=== PATIENT | female | born 1995 | race Native Hawaiian/Other Pacific Islander ===

== ENCOUNTER 2016-10-15 12:48 | Emergency (ER) | payer OTHER ==
[2016-10-15] MEDS ORDERED: SODIUM CHLORIDE 0.9% 1,000 ML IV STA (13:45)
[2016-10-15] MEDS ORDERED: ONDANSETRON 4 MG/2 ML VIAL IVP STA (13:45)
[2016-10-15] MEDS ORDERED: FAMOTIDINE 20 MG/2 ML VIAL IV STA (13:45)
--- NOTE | 2016-10-15 13:50 | ED ---
General Adult HPI - General Chief complaint: Nausea/Vomiting/Diarrhea Stated complaint: Vomiting Time Seen by Provider: 10/15/16 13:40 Source: patient, RN notes reviewed Mode of arrival: ambulatory Limitations: no limitations - History of Present Illness Initial comments: 21-year-old female who presents emergency room with multiple complaints. Patient does admit that she's had some cough congestion over the last 5 days. Does admit to positive sputum production it's been yellow and green color. Shows admits that today she began having some abdominal pain in the epigastric and left upper quadrant. She does admit that she's had symptoms of and vomiting. Denies any signs of blood. Denies any other complaints or associated symptoms at this time. Patient denies any recent fever, chills, shortness of breath, chest pain, back pain, numbness or tingling, dysuria or hematuria, constipation or diarrhea, headaches or visual changes, or any other complaints. - Related Data Previous Rx's Medication Instructions Recorded Azithromycin [Zithromax Z-pack] 0 mg PO DIRECTED #6 tab 10/15/16 Ondansetron Odt [Zofran ODT] 4 mg PO Q8HR PRN #20 tab 10/15/16 Allergies Allergy/AdvReac Type Severity Reaction Status Date / Time No Known Allergies Allergy Verified 10/15/16 14:50 Review of Systems ROS Statement: Those systems with pertinent positive or pertinent negative responses have been documented in the HPI. ROS Other: All systems not noted in ROS Statement are negative. Past Medical History Past Medical History: No Reported History History of Any Multi-Drug Resistant Organisms: None Reported Past Surgical History: No Surgical Hx Reported Past Psychological History: No Psychological Hx Reported Smoking Status: Never smoker Past Alcohol Use History: None Reported Past Drug Use History: None Reported General Exam - General Exam Comments Initial Comments: General: The patient is awake and alert, in no distress, and does not appear acutely ill. Eye: Pupils are equal, round and reactive to light, extra-ocular movements are intact. No nystagmus. There is normal conjunctiva bilaterally. No signs of icterus. Ears, nose, mouth and throat: There are moist mucous membranes and no oral lesions. Neck: The neck is supple, there is no tenderness or JVD. Cardiovascular: There is a regular rate and rhythm. No murmur, rub or gallop is appreciated. Respiratory: Lungs are clear to auscultation, respirations are non-labored, breath sounds are equal. No wheezes, stridor, rales, or rhonchi. Gastrointestinal: Normal exam. Normal bowel sounds. Abdomen soft on palpation. Patient does have mild tenderness epigastric and left upper quadrant. No rebound tenderness. No guarding. No CVA tenderness. Musculoskeletal: Normal ROM, no tenderness. Strength 5/5. Sensation intact. Pulses equal bilaterally 2+. Neurological: A&O x 3. CN II-XII intact, There are no obvious motor or sensory deficits. Coordination appears grossly intact. Speech is normal. Skin: Skin is warm and dry and no rashes or lesions are noted. Psychiatric: Cooperative, appropriate mood & affect, normal judgment. Limitations: no limitations Course Vital Signs 10/15/16 10/15/16 10/15/16 12:57 14:28 16:20 Temperature 99.8 F H 101.2 F H 99.3 F Pulse Rate 111 H 73 Respiratory 20 16 Rate Blood Pressure 133/97 130/81 O2 Sat by Pulse 97 96 Oximetry Medical Decision Making - Medical Decision Making Reexamined at this time shows no signs of distress resting comfortably in the stretcher. Does admit that she's feeling better here in the emergency room. Patient soft nontender. Patient's labs been reviewed does show 12,000 white count. Patient did have fever when she presented to the emergency room. Was given Tylenol. Patient feeling better. Patient repeat vitals are stable. Non- tachycardic. Feeling better after liter bolus. Patient's labs all systems reviewed does show some blood she does admit that she's on her menstrual cycle. Patient's chest x-rays negative for any pneumonia. She does have cough congestion over the last 5 days with positive sputum production. Patient will be treated for bronchitis infection. Patient is a advised to follow-up the family doctor over the next 2 days return here to the emergency room symptoms increase or worsen. Patient advised return here to emergency room for any other concerns. - Lab Data Result diagrams: 10/15/16 14:10 10/15/16 14:10 Lab Results 10/15/16 10/15/16 10/15/16 Range/Units 14:10 14:10 14:10 WBC 12.1 H (4.0-11.0) k/uL RBC 4.88 (3.80-5.40) m/uL Hgb 12.2 (11.4-16.0) gm/dL Hct 36.7 (34.0-46.0) % MCV 75.3 L (80.0-100.0) fL MCH 25.1 (25.0-35.0) pg MCHC 33.3 (31.0-37.0) g/dL RDW 15.6 H (11.5-15.5) % Plt Count 417 (150-450) k/uL Neutrophils % 72 % Lymphocytes % 18 % Monocytes % 5 % Eosinophils % 2 % Basophils % 1 % Neutrophils # 8.7 H (1.3-7.7) k/uL Lymphocytes # 2.2 (1.0-4.8) k/uL Monocytes # 0.6 (0-1.0) k/uL Eosinophils # 0.3 (0-0.7) k/uL Basophils # 0.1 (0-0.2) k/uL Microcytosis Slight Sodium 142 (137-145) mmol/L Potassium 3.9 (3.5-5.1) mmol/L Chloride 105 (98-107) mmol/L Carbon Dioxide 22 (22-30) mmol/L Anion Gap 15 mmol/L BUN 5 L (7-17) mg/dL Creatinine 0.71 (0.52-1.04) mg/dL Est GFR (MDRD) Af Amer >60 (>60 ml/min/1.73 sqM) Est GFR (MDRD) Non-Af >60 (>60 ml/min/1.73 sqM) Glucose 96 (74-99) mg/dL Calcium 9.9 (8.4-10.2) mg/dL Total Bilirubin 0.9 (0.2-1.3) mg/dL AST 26 (14-36) U/L ALT 50 (9-52) U/L Alkaline Phosphatase 89 (38-126) U/L Total Protein 8.3 H (6.3-8.2) g/dL Albumin 4.8 (3.5-5.0) g/dL Amylase <30 L (30-110) U/L Lipase 47 (23-300) U/L Urine Color Urine Appearance (Clear) Urine pH (5.0-8.0) Ur Specific [place] (1.001-1.035) Urine Protein (Negative) Urine Glucose (UA) (Negative) Urine Ketones (Negative) Urine Blood (Negative) Urine Nitrite (Negative) Urine Bilirubin (Negative) Urine Urobilinogen (<2.0) mg/dL Ur Leukocyte Esterase (Negative) Urine RBC (0-5) /hpf Urine WBC (0-5) /hpf Ur Squamous Epith Cells (0-4) /hpf Hyaline Casts (0-2) /lpf Urine Mucus (None) /hpf Urine HCG, Qual (Not Detectd) Heterophile Antibody Negative (Negative) Group A Strep Rapid (Negative) 10/15/16 10/15/16 10/15/16 Range/Units 14:54 15:31 15:31 WBC (4.0-11.0) k/uL RBC (3.80-5.40) m/uL Hgb (11.4-16.0) gm/dL Hct (34.0-46.0) % MCV (80.0-100.0) fL MCH (25.0-35.0) pg MCHC (31.0-37.0) g/dL RDW (11.5-15.5) % Plt Count (150-450) k/uL Neutrophils % % Lymphocytes % % Monocytes % % Eosinophils % % Basophils % % Neutrophils # (1.3-7.7) k/uL Lymphocytes # (1.0-4.8) k/uL Monocytes # (0-1.0) k/uL Eosinophils # (0-0.7) k/uL Basophils # (0-0.2) k/uL Microcytosis Sodium (137-145) mmol/L Potassium (3.5-5.1) mmol/L Chloride (98-107) mmol/L Carbon Dioxide (22-30) mmol/L Anion Gap mmol/L BUN (7-17) mg/dL Creatinine (0.52-1.04) mg/dL Est GFR (MDRD) Af Amer (>60 ml/min/1.73 sqM) Est GFR (MDRD) Non-Af (>60 ml/min/1.73 sqM) Glucose (74-99) mg/dL Calcium (8.4-10.2) mg/dL Total Bilirubin (0.2-1.3) mg/dL AST (14-36) U/L ALT (9-52) U/L Alkaline Phosphatase (38-126) U/L Total Protein (6.3-8.2) g/dL Albumin (3.5-5.0) g/dL Amylase (30-110) U/L Lipase (23-300) U/L Urine Color Yellow Urine Appearance Clear (Clear) Urine pH 6.0 (5.0-8.0) Ur Specific [place] 1.016 (1.001-1.035) Urine Protein Trace H (Negative) Urine Glucose (UA) Negative (Negative) Urine Ketones 1+ H (Negative) Urine Blood Moderate H (Negative) Urine Nitrite Negative (Negative) Urine Bilirubin Negative (Negative) Urine Urobilinogen <2.0 (<2.0) mg/dL Ur Leukocyte Esterase Trace H (Negative) Urine RBC 71 H (0-5) /hpf Urine WBC 3 (0-5) /hpf Ur Squamous Epith Cells 1 (0-4) /hpf Hyaline Casts 4 H (0-2) /lpf Urine Mucus Many H (None) /hpf Urine HCG, Qual Not Detected (Not Detectd) Heterophile Antibody (Negative) Group A Strep Rapid Negative (Negative) Disposition Clinical Impression: Bronchitis, acute Disposition: HOME SELF-CARE Condition: Good Instructions: Acute Bronchitis (ED) Additional Instructions: Please use medication as discussed. Please follow-up with family doctor in the next 2 days of symptoms have not improved. Please return to emergency room if the symptoms increase or worsen or for any other concerns. Prescriptions: Azithromycin [Zithromax Z-pack] 0 mg PO DIRECTED #6 tab Ondansetron Odt [Zofran ODT] 4 mg PO Q8HR PRN #20 tab PRN Reason: Nausea Referrals: None,Stated [Primary Care Provider] - 1-2 days Nely Rodriguez MD [STAFF PHYSICIAN] - 1-2 days Time of Disposition: 16:54
[2016-10-15] MEDS ORDERED: ACETAMINOPHEN IV (For NPO) 1,000 MG in SALINE 100 100ML.BAG IVPB STA (14:30)
[2016-10-15 14:47] LABS: Basophils # (A) 0.1 k/uL (0-0.2); Basophils % (A) 1 %; CH 24.6; CHCM 32.8; Eosinophils # (A) 0.3 k/uL (0-0.7); Eosinophils % (A) 2 %; HCT 36.7 % (34.0-46.0); HDW 2.67; HGB 12.2 gm/dL (11.4-16.0); Luc # (Auto) 0.25; Luc % (Auto) 2; Lymphocytes # (A) 2.2 k/uL (1.0-4.8); Lymphocytes % (A) 18 %; MCH 25.1 pg (25.0-35.0); MCHC 33.3 g/dL (31.0-37.0); MCV 75.3 fL (80.0-100.0); Mean Platelet Volume 6.2; Microcytosis Slight; Monocytes # (A) 0.6 k/uL (0-1.0); Monocytes % (A) 5 %; Neutrophils # (A) 8.7 k/uL (1.3-7.7); Neutrophils % (A) 72 %; RBC 4.88 m/uL (3.80-5.40); RDW 15.6 % (11.5-15.5); WBC 12.1 k/uL (4.0-11.0); WBC (Perox) 12.65
[2016-10-15 14:58] LABS: ALT 50 U/L (9-52); AST 26 U/L (14-36); Alkaline Phosphatase 89 U/L (38-126); Amylase <30 U/L (30-110); Anion Gap 15 mmol/L; Blood Urea Nitrogen 5 mg/dL (7-17); Calcium 9.9 mg/dL (8.4-10.2); Carbon Dioxide 22 mmol/L (22-30); Chloride 105 mmol/L (98-107); Glucose 96 mg/dL (74-99); Non-African American GFR(MDRD) >60 (>60 ml/min/1.73 sqM); Potassium 3.9 mmol/L (3.5-5.1); Sodium 142 mmol/L (137-145); Total Bilirubin 0.9 mg/dL (0.2-1.3); Total Protein 8.3 g/dL (6.3-8.2)
[2016-10-15 15:49] LABS: Appearance,Urine Clear (Clear); Bilirubin,Urine Negative (Negative); Glucose,Urine (UA) Negative (Negative); Ketones,Urine 1+ (Negative); Leukocyte Esterase,Urine Trace (Negative); Mucus,Urine Many /hpf; Nitrite,Urine Negative (Negative); Particle Count 7115; Protein,Urine Trace (Negative); RBC,Urine 71 /hpf (0-5); Specific Gravity,Urine 1.016 (1.001-1.035); Squamous Epithelial Cell,Urine 1 /hpf (0-4); UA Billing (MACRO vs. MICRO) MICRO; Urobilinogen,Urine <2.0 mg/dL (<2.0); WBC,Urine 3 /hpf (0-5)
--- NOTE | 2016-10-15 16:04 | XR ---
EXAMINATION TYPE: XR KUB , 2 VIEWS DATE OF EXAM ORDERED: 10/15/2016 HISTORY: abdominal pain. COMPARISON: Previous study dated 05/14/1997. FINDINGS: The abdominal gas pattern is normal. There is no evidence of obstruction or free air. No u nusual calcifications are seen. IMPRESSION: NORMAL ABDOMEN.
--- NOTE | 2016-10-15 16:25 | XR ---
EXAMINATION TYPE: XR chest 2V DATE OF EXAM: 10/15/2016 HISTORY: cough. REFERENCE: Previous study dated 1996.. FINDINGS: The lungs are clear. Pleural spaces are clear. The heart is not enlarged. IMPRESSION: NORMAL CHEST.
[2016-10-15 17:14] VITALS: BP 117/62; PULSE 79; RESP 18; TEMP 98.5
== END 2016-10-15 17:15 | disposition home or self-care (01) ==
LOC: EC 12:48
DX: J20.9 Acute bronchitis, unspecified (principal); R11.2 Nausea with vomiting, unspecified
CPT/HCPCS: 36415; 80053; 82150; 83690; 85025; 86308; 81001; 81025; 87081; 87430; 71020; 74000; 99284; 96374; 96375 ×2; 96361 ×3; J2405; J0131

== ENCOUNTER 2016-12-08 10:02 | Emergency (ER) | payer OTHER ==
[2016-12-08] MEDS ORDERED: SODIUM CHLORIDE 0.9% 1,000 ML IV STA (10:45)
--- NOTE | 2016-12-08 10:51 | ED ---
General Adult HPI - General Chief complaint: Vaginal Bleeding Stated complaint: DIZZINESS, ALTERED, BLOOD LOSS Time Seen by Provider: 12/08/16 10:28 Source: patient, RN notes reviewed Mode of arrival: ambulatory Limitations: no limitations - History of Present Illness Initial comments: 21-year-old female presents to the emergency Department chief complaint of increased vaginal bleeding. Patient has chronically suffer from a regular menstrual cycles. This when going on for about 3 weeks her been very heavy. She states she goes to 2 pads at a time. She states that she has some lightheadedness with this. Patient states that she has had nausea vomiting. He states it just seems either and different than normal and they were concerned. she has never seen anyone regarding her abnormal menstrual cycles. Patient denies any concern for . Patient states she's having whole- body cramping and burning type pain. Patient states that she was concerned due to her discomfort so that she should be evaluated .Patient denies any recent fever, chills, shortness of breath, chest pain, back pain, nausea vomiting, numbness or tingling, dysuria or hematuria, constipation or diarrhea, headaches or visual changes, or any other current symptoms. - Related Data Home Medications Medication Instructions Recorded Confirmed No Known Home Medications [No 12/08/16 12/08/16 Known Home Medications] Allergies Allergy/AdvReac Type Severity Reaction Status Date / Time No Known Allergies Allergy Verified 12/08/16 11:04 Review of Systems ROS Statement: Those systems with pertinent positive or pertinent negative responses have been documented in the HPI. ROS Other: All systems not noted in ROS Statement are negative. Past Medical History Past Medical History: No Reported History History of Any Multi-Drug Resistant Organisms: None Reported Past Surgical History: No Surgical Hx Reported Past Psychological History: No Psychological Hx Reported Smoking Status: Never smoker Past Alcohol Use History: None Reported Past Drug Use History: None Reported General Exam - General Exam Comments Initial Comments: General: The patient is awake and alert, in no distress, and does not appear acutely ill. Eye: Pupils are equal, round and reactive to light, extra-ocular movements are intact; there is normal conjunctiva bilaterally. No signs of icterus. Ears, nose, mouth and throat: There are moist mucous membranes and no oral lesions. Neck: The neck is supple, there is no tenderness. Cardiovascular: There is a regular rate and rhythm. No murmur, rub or gallop is appreciated. Respiratory: Lungs are clear to auscultation, respirations are non-labored, breath sounds are equal. No wheezes, stridor, rales, or rhonchi. Gastrointestinal: Soft, non-distended, non-tender abdomen without masses or organomegaly noted. There is no rebound or guarding present. No CVA tenderness. Bowel sounds are unremarkable. Back: There is no tenderness to palpation in the midline. There is no obvious deformity. No rashes noted. Musculoskeletal: Normal ROM, no tenderness, There is no pedal edema. There is no calf tenderness or swelling. Sensation intact. Pulses equal bilaterally 2+. Neurological: CN II-XII intact, There are no obvious motor or sensory deficits. Coordination appears grossly intact. Speech is normal. Skin: Skin is warm and dry and no rashes or lesions are noted. Psychiatric: Cooperative, appropriate mood & affect, normal judgment. Limitations: no limitations Course Vital Signs 12/08/16 12/08/16 10:08 12:51 Temperature 97.5 F L 97.7 F Pulse Rate 104 H 95 Respiratory 18 16 Rate Blood Pressure 153/95 117/57 O2 Sat by Pulse 100 100 Oximetry Medical Decision Making - Medical Decision Making 21-year-old female presents emergency department with a chief complaint of vaginal bleeding.at this time patient's hemoglobin is stable. At this time ultrasound and CAT scan did not show any acute process. This and we discussed patient was admitted she bleeding since she's had . At this time we did discuss follow-up with the [facility]. We discussed return parameters outpatient family's questions. They stated they understood. All questions have been answered. They'll be discharged. - Lab Data Result diagrams: 12/08/16 11:00 12/08/16 11:00 Lab Results 12/08/16 12/08/16 12/08/16 Range/Units 11:00 11:00 11:00 WBC 10.4 (4.0-11.0) k/uL RBC 4.79 (3.80-5.40) m/uL Hgb 12.5 (11.4-16.0) gm/dL Hct 37.0 (34.0-46.0) % MCV 77.2 L (80.0-100.0) fL MCH 26.0 (25.0-35.0) pg MCHC 33.7 (31.0-37.0) g/dL RDW 15.1 (11.5-15.5) % Plt Count 421 (150-450) k/uL Neutrophils % 67 % Lymphocytes % 26 % Monocytes % 4 % Eosinophils % 2 % Basophils % 0 % Neutrophils # 7.0 (1.3-7.7) k/uL Lymphocytes # 2.7 (1.0-4.8) k/uL Monocytes # 0.4 (0-1.0) k/uL Eosinophils # 0.2 (0-0.7) k/uL Basophils # 0.0 (0-0.2) k/uL Microcytosis Slight Sodium 141 (137-145) mmol/L Potassium 4.0 (3.5-5.1) mmol/L Chloride 107 (98-107) mmol/L Carbon Dioxide 18 L (22-30) mmol/L Anion Gap 16 mmol/L BUN 7 (7-17) mg/dL Creatinine 0.60 (0.52-1.04) mg/dL Est GFR (MDRD) Af Amer >60 (>60 ml/min/1.73 sqM) Est GFR (MDRD) Non-Af >60 (>60 ml/min/1.73 sqM) Glucose 126 H (74-99) mg/dL Calcium 10.4 H (8.4-10.2) mg/dL Total Bilirubin 0.5 (0.2-1.3) mg/dL AST 22 (14-36) U/L ALT 30 (9-52) U/L Alkaline Phosphatase 89 (38-126) U/L Total Protein 7.5 (6.3-8.2) g/dL Albumin 4.4 (3.5-5.0) g/dL Urine Color Urine Appearance (Clear) Urine pH (5.0-8.0) Ur Specific [place] (1.001-1.035) Urine Protein (Negative) Urine Glucose (UA) (Negative) Urine Ketones (Negative) Urine Blood (Negative) Urine Nitrite (Negative) Urine Bilirubin (Negative) Urine Urobilinogen (<2.0) mg/dL Ur Leukocyte Esterase (Negative) Urine RBC (0-5) /hpf Urine WBC (0-5) /hpf Ur Squamous Epith Cells (0-4) /hpf Urine Mucus (None) /hpf Urine HCG, Qual (Not Detectd) Blood Type O Positive Blood Type Recheck No Antibody Screen NEGATIVE Spec Expiration Date 12/11/2016229912/08/16 12/08/16 Range/Units 11:30 11:30 WBC (4.0-11.0) k/uL RBC (3.80-5.40) m/uL Hgb (11.4-16.0) gm/dL Hct (34.0-46.0) % MCV (80.0-100.0) fL MCH (25.0-35.0) pg MCHC (31.0-37.0) g/dL RDW (11.5-15.5) % Plt Count (150-450) k/uL Neutrophils % % Lymphocytes % % Monocytes % % Eosinophils % % Basophils % % Neutrophils # (1.3-7.7) k/uL Lymphocytes # (1.0-4.8) k/uL Monocytes # (0-1.0) k/uL Eosinophils # (0-0.7) k/uL Basophils # (0-0.2) k/uL Microcytosis Sodium (137-145) mmol/L Potassium (3.5-5.1) mmol/L Chloride (98-107) mmol/L Carbon Dioxide (22-30) mmol/L Anion Gap mmol/L BUN (7-17) mg/dL Creatinine (0.52-1.04) mg/dL Est GFR (MDRD) Af Amer (>60 ml/min/1.73 sqM) Est GFR (MDRD) Non-Af (>60 ml/min/1.73 sqM) Glucose (74-99) mg/dL Calcium (8.4-10.2) mg/dL Total Bilirubin (0.2-1.3) mg/dL AST (14-36) U/L ALT (9-52) U/L Alkaline Phosphatase (38-126) U/L Total Protein (6.3-8.2) g/dL Albumin (3.5-5.0) g/dL Urine Color Light Red Urine Appearance Clear (Clear) Urine pH 7.5 (5.0-8.0) Ur Specific [place] 1.011 (1.001-1.035) Urine Protein Trace H (Negative) Urine Glucose (UA) Negative (Negative) Urine Ketones Negative (Negative) Urine Blood Large H (Negative) Urine Nitrite Negative (Negative) Urine Bilirubin Negative (Negative) Urine Urobilinogen <2.0 (<2.0) mg/dL Ur Leukocyte Esterase Trace H (Negative) Urine RBC >182 H (0-5) /hpf Urine WBC 35 H (0-5) /hpf Ur Squamous Epith Cells 1 (0-4) /hpf Urine Mucus Rare H (None) /hpf Urine HCG, Qual Not Detected (Not Detectd) Blood Type Blood Type Recheck Antibody Screen Spec Expiration Date - Radiology Data Radiology results: report reviewed, image reviewed Disposition Clinical Impression: Dysfunctional uterine bleeding Disposition: HOME SELF-CARE Condition: Stable Instructions: Dysfunctional Uterine Bleeding (ED) Additional Instructions: Please use medication as discussed. Please follow up with family doctor if symptoms have not improved over the next two days. Please return to the emergency room if your symptoms increase or worsen or for any other concerns. Referrals: Edward Dial MD [STAFF PHYSICIAN] - 1-2 days Desmond Spencer MD [STAFF PHYSICIAN] - 1-2 days Time of Disposition: 12:59
[2016-12-08 11:19] LABS: Basophils % (A) 0 %; CH 25.4; Eosinophils # (A) 0.2 k/uL (0-0.7); Eosinophils % (A) 2 %; HDW 2.66; HGB 12.5 gm/dL (11.4-16.0); Luc # (Auto) 0.15; Luc % (Auto) 1; Lymphocytes # (A) 2.7 k/uL (1.0-4.8); Lymphocytes % (A) 26 %; MCHC 33.7 g/dL (31.0-37.0); MCV 77.2 fL (80.0-100.0); Mean Platelet Volume 6.6; Microcytosis Slight; Monocytes # (A) 0.4 k/uL (0-1.0); Monocytes % (A) 4 %; Neutrophils % (A) 67 %; RBC 4.79 m/uL (3.80-5.40); RDW 15.1 % (11.5-15.5); WBC 10.4 k/uL (4.0-11.0); WBC (Perox) 10.54
[2016-12-08 11:40] LABS: ALT 30 U/L (9-52); AST 22 U/L (14-36); Alkaline Phosphatase 89 U/L (38-126); Anion Gap 16 mmol/L; Blood Urea Nitrogen 7 mg/dL (7-17); Calcium 10.4 mg/dL (8.4-10.2); Carbon Dioxide 18 mmol/L (22-30); Chloride 107 mmol/L (98-107); Glucose 126 mg/dL (74-99); Non-African American GFR(MDRD) >60 (>60 ml/min/1.73 sqM); Sodium 141 mmol/L (137-145); Total Bilirubin 0.5 mg/dL (0.2-1.3); Total Protein 7.5 g/dL (6.3-8.2)
[2016-12-08 11:54] LABS: Appearance,Urine Clear (Clear); Bilirubin,Urine Negative (Negative); Glucose,Urine (UA) Negative (Negative); Ketones,Urine Negative (Negative); Leukocyte Esterase,Urine Trace (Negative); Mucus,Urine Rare /hpf; Nitrite,Urine Negative (Negative); PH, Urine 7.5 (5.0-8.0); Particle Count 2647; Protein,Urine Trace (Negative); RBC,Urine >182 /hpf (0-5); Specific Gravity,Urine 1.011 (1.001-1.035); Squamous Epithelial Cell,Urine 1 /hpf (0-4); UA Billing (MACRO vs. MICRO) MICRO; Urobilinogen,Urine <2.0 mg/dL (<2.0); WBC,Urine 35 /hpf (0-5)
--- NOTE | 2016-12-08 12:11 | US ---
EXAMINATION TYPE: US pelvic complete DATE OF EXAM: 12/08/2016 COMPARISON: NONE CLINICAL HISTORY: Pain. Bleeding x 3 weeks, irregular cycles, 0 TECHNIQUE: Transabdominal (TA) only: attempted transvaginal exam, patient unable to tolerate. Date of LMP: 3 weeks ago EXAM MEASUREMENTS: Uterus: 6.3 x 4.0 x 4.8 cm Endometrial Stripe: 0.4 cm Right Ovary: not seen Left Ovary: not seen 1. Uterus: anteverted, visualized portions appear wnl 2. Endometrium: visualized portions appear wnl 3. Right Ovary: not seen due to overlying bowel gas 4. Left Ovary: not seen due to overlying bowel gas 5. Bilateral Adnexa: wnl 6. Posterior cul-de-sac: wnl IMPRESSION: Limited exam as only the transabdominal technique was not tolerated by the patient. There fore the ovaries were not visualized. Uterus and endometrial thickness are within normal limits.
--- NOTE | 2016-12-08 12:47 | CT ---
EXAMINATION TYPE: CT abdomen pelvis wo con DATE OF EXAM: 12/08/2016 COMPARISON: Abdomen 10/15/2016 HISTORY: Generalized pain with excess vaginal bleeding per patient CT DLP: 790.6 mGycm Automated exposure control for dose reduction was used. Helical acquisition from the lung bases throu gh the pelvis. TECHNIQUE: Helical acquisition of images from the lung bases through the pelvis. FINDINGS: Lack of intravenous contrast could compromise the exam. LUNG BASES: No significant abnormality is appreciated. AORTA: No significant abnormality is appreciated. LIVER/GB: Liver is borderline enlarged and shows low attenuation suggestive of hepatic steatosis, gal lbladder is normal. PANCREAS: No significant abnormality is seen. SPLEEN: No significant abnormality is seen. ADRENALS: No significant abnormality is seen. KIDNEYS: No significant abnormality is seen. REPRODUCTIVE ORGANS: No significant abnormality is seen. URINARY BLADDER: No significant abnormality is seen. BOWEL: Appendix is normal, no bowel obstruction. FREE AIR: No Free Air is visible. ASCITES: None visible. PELVIC ADENOPATHY: None visualized. RETROPERITONEAL ADENOPATHY: No Retroperitoneal Adenopathy visible. OSSEOUS STRUCTURES: No significant abnormality is seen. IMPRESSION: NONCONTRAST EXAM. HEPATIC STEATOSIS. NO ABNORMALITY EVIDENT TO ACCOUNT FOR PATIENT'S SYMPTOMS.
[2016-12-08 12:53] VITALS: BP 117/57; PULSE 95; RESP 16; TEMP 97.7
== END 2016-12-08 13:10 | disposition home or self-care (01) ==
LOC: EC 10:02
DX: N93.8 Other specified abnormal uterine and vaginal bleeding (principal); R42 Dizziness and giddiness; R11.2 Nausea with vomiting, unspecified; R52 Pain, unspecified
CPT/HCPCS: 36415; 74176; 76856; 80053; 81001; 81025; 85025; 86850; 86900; 86901; 96360; 96361; 99284

== ENCOUNTER 2016-12-18 22:19 | Emergency (ER) | payer OTHER ==
[2016-12-18 22:55] LABS: Glucose,Whole Blood 126 mg/dL (75-99)
[2016-12-18 22:57] VITALS: BP 131/97; PULSE 112; RESP 20; TEMP 97.9
[2016-12-18] MEDS ORDERED: LORazepam 1 MG TAB PO STA (23:27)
--- NOTE | 2016-12-19 00:44 | ED ---
General Adult HPI - General Chief complaint: Weakness Stated complaint: lightheaded/dizzy/facial numbness Time Seen by Provider: 12/18/16 23:20 Source: patient, family, RN notes reviewed Mode of arrival: wheelchair Limitations: no limitations - History of Present Illness Initial comments: Chief complaint history of present illness a 21-year-old female here with a complaint of being short of breath. The patient is hyperventilating has tingling around her lips and mouth. Patient denies any pain - Related Data Home Medications Medication Instructions Recorded Confirmed No Known Home Medications [No 12/08/16 12/18/16 Known Home Medications] Allergies Allergy/AdvReac Type Severity Reaction Status Date / Time No Known Allergies Allergy Verified 12/18/16 23:29 Review of Systems ROS Statement: Those systems with pertinent positive or pertinent negative responses have been documented in the HPI. Review of systems. Patient reports she is short of breath a deep breaths frequently. Patient's had what appears to be a panic attack or anxiety attack. Patient reports that on again off again for several weeks. Cannot think of anything as bothering her. She just recently moved here to the past several months from [place] to live with her father. Denies any difficulties or problems at home. States she feels safe in her environment. Denies any chronic medical problems. No known ALLERGIES. Family history not contributory. Patient denies smoking denies drinking. Denies any injuries. ROS Other: All systems not noted in ROS Statement are negative. Past Medical History Past Medical History: No Reported History History of Any Multi-Drug Resistant Organisms: None Reported Past Surgical History: No Surgical Hx Reported Past Psychological History: No Psychological Hx Reported Smoking Status: Never smoker Past Alcohol Use History: None Reported Past Drug Use History: None Reported General Exam - General Exam Comments Initial Comments: General: The patient is awake and alert, mild hyperventilating. Tingling while lips. Vital signs temperature 97.9 pulse 112 respiratory rate 20 pulse ox on percent room air blood pressure 131/97. Eye: Pupils are equal, round and reactive to light, extra-ocular movements are intact ; there is normal conjunctiva bilaterally. No signs of icterus. Ears, nose, mouth and throat: There are moist mucous membranes and no oral lesions. Neck: The neck is supple, there is no tenderness or JVD. Cardiovascular: There is a regular rate and rhythm. No murmur, rub or gallop is appreciated. Respiratory: Lungs are clear to auscultation, respirations are non-labored, breath sounds are equal. No wheezes, stridor, rales, or rhonchi. Breathing mildly rapidly. Causing sensation of shortness of breath and mild anxiety attack. Gastrointestinal: No nausea no vomiting no diarrhea. Back: There is no tenderness to palpation in the midline. There is no obvious deformity. No rashes noted. Musculoskeletal: Normal ROM, no tenderness, There is no pedal edema. There is no calf tenderness or swelling. Sensation intact. Neurological: No neuro deficits. Skin: Skin is warm and dry and no rashes or lesions are noted. Psychiatric: Patient denies any depression or anxiety filled incidences or problems. Limitations: no limitations Course Vital Signs 12/18/16 22:52 Temperature 97.9 F Pulse Rate 112 H Respiratory 20 Rate Blood Pressure 131/97 O2 Sat by Pulse 100 Oximetry EKG Findings - EKG Comments: EKG Findings:: EKG was done and reviewed at 2309 showing sinus tachycardia rate 110. No acute ST elevation no ectopy. Rate 110 LA interval is 132 QRS 82 QT [address] Dial Medical Decision Making - Medical Decision Making Medical decision making. I advised the patient is to how to breathe slowly so her hyperventilation and symptoms with hyperventilation subsided. His was affective. Patient's blood sugars 123. test negative. Chest x-ray was done and was reported by radiologist to be negative as well. The patient was given medications including Ativan and this seemed to help quite a bit. The patient is no longer hyperventilating she'll be referred to her family physician on her Medicaid card. If she has not have a physician and she should follow-up with Dr. Kramer. - Lab Data Lab Results 12/18/16 12/18/16 Range/Units 22:53 23:49 POC Glucose (mg/dL) 126 H (75-99) mg/dL POC Glu Log Chain Feeder ID Priscila Keene Urine HCG, Qual Not Detected (Not Detectd) Disposition Clinical Impression: Hyperventilation syndrome Disposition: HOME SELF-CARE Condition: Fair Instructions: Hyperventilation (ED) Additional Instructions: Remember how to breathe when you have an anxiety or panic attack. Call follow up with your family physician. Referrals: None,Stated [Primary Care Provider] - 1-2 days Kong Noe MD [REFERRING] - 1-2 days Time of Disposition: 00:52
--- NOTE | 2016-12-19 01:04 | XR ---
EXAM: XR Chest, 2 Views CLINICAL HISTORY: Reason: Pain TECHNIQUE: Frontal and lateral views of the chest. COMPARISON: 10/15/16 FINDINGS: Lungs: Unremarkable. No consolidation. Pleural space: Unremarkable. No pneumothorax. Heart: Unremarkable. No cardiomegaly. Mediastinum: Unremarkable. Bones/joints: Unremarkable. IMPRESSION: No evidence of acute cardiopulmonary disease.
== END 2016-12-19 01:12 | disposition home or self-care (01) ==
LOC: EC 22:19
DX: F45.8 Other somatoform disorders (principal); F41.0 Panic disorder [episodic paroxysmal anxiety]; R06.02 Shortness of breath
CPT/HCPCS: 36415; 71020; 81025; 93005; 99285

== ENCOUNTER 2016-12-21 01:24 | Emergency (ER) | payer OTHER ==
[2016-12-21] MEDS ORDERED: ONDANSETRON ODT 4 MG TAB PO STA (01:40)
[2016-12-21] MEDS ORDERED: LORazepam 2 MG/ML SYRINGE IM STA (01:40)
[2016-12-21] MEDS ORDERED: MAG HYDROX/AL HYDROX/SIMETH 30 ML, HYOSCYAMINE ELIXIR 10 ML, CIMETIDINE HCL 300 MG, LID... PO STA ×4 (01:40)
--- NOTE | 2016-12-21 01:48 | ED ---
General Adult HPI - General Chief complaint: Chest Pain Stated complaint: chest discomfort Time Seen by Provider: 12/21/16 01:33 Source: patient Mode of arrival: ambulatory Limitations: no limitations - History of Present Illness Initial comments: 21-year-old female patient presents to emergency department today with complaints of heartburn. She states that she is having some mid epigastric burning. States that she did have pizza for dinner tonight, and her symptoms started after she ate this. She states that she has nausea with this. States she did vomit one time. She states that she did take some Tums however these did not help. She states that the continued symptoms triggered a panic attack. She states now she feels like she has chest tightness, shortness of breath, and tingling in her hands. She states that these symptoms are consistent with her previous panic attacks. She states that she feels like the panic attack is worsening. Patient denies any recent rash, fever, chills, abdominal pain, diarrhea, constipation, back pain, numbness, tingling, dizziness, weakness, hematuria, dysuria, urinary urgency, urinary frequency, headache, visual changes , or any other complaints. - Related Data Home Medications Medication Instructions Recorded Confirmed No Known Home Medications [No 12/08/16 12/21/16 Known Home Medications] Allergies Allergy/AdvReac Type Severity Reaction Status Date / Time No Known Allergies Allergy Verified 12/18/16 23:29 Review of Systems ROS Statement: Those systems with pertinent positive or pertinent negative responses have been documented in the HPI. ROS Other: All systems not noted in ROS Statement are negative. Past Medical History Past Medical History: No Reported History History of Any Multi-Drug Resistant Organisms: None Reported Past Surgical History: No Surgical Hx Reported Past Psychological History: No Psychological Hx Reported Smoking Status: Never smoker Past Alcohol Use History: None Reported Past Drug Use History: None Reported General Exam Limitations: no limitations General appearance: alert, anxious, other (Well-developed, well-nourished adult female patient who appears to be quite anxious at this time. Patient is hyperventilating. Vital signs upon presentation were temperature 97.8, pulse 91 , respirations 20, blood pressure 138/83, pulse ox 99% on room air.) Eye exam: Present: normal appearance, PERRL, EOMI. Absent: scleral icterus, conjunctival injection, periorbital swelling ENT exam: Present: normal exam, normal oropharynx, mucous membranes moist Respiratory exam: Present: normal lung sounds bilaterally, chest wall tenderness. Absent: respiratory distress, wheezes, rales, rhonchi, stridor Cardiovascular Exam: Present: regular rate, normal rhythm, normal heart sounds. Absent: systolic murmur, diastolic murmur, rubs, gallop, clicks GI/Abdominal exam: Present: soft, normal bowel sounds. Absent: distended, tenderness, guarding, rebound, rigid Neurological exam: Present: alert, oriented X3, CN II-XII intact Psychiatric exam: Present: anxious, other (Hyperventilating) Skin exam: Present: warm, dry, intact, normal color. Absent: rash Course Vital Signs 12/21/16 01:27 Temperature 97.8 F Pulse Rate 91 Respiratory 20 Rate Blood Pressure 138/83 O2 Sat by Pulse 99 Oximetry Medical Decision Making - Medical Decision Making 21-year-old female patient presents to emergency department today for complaints of heartburn that triggered a panic attack. During exam patient was quite anxious and hyperventilating. She was given a GI cocktail as well as IM Ativan here in the department. Upon reevaluation patient is resting comfortably in bed with no complaints. States she is feeling much better. She would like to go home to go to bed. She is instructed to follow-up with the primary care physician for further evaluation of this anxiety. She is instructed to avoid greasy or spicy foods. She is instructed to return here immediately for any new, worsening, or concerning symptoms. Patient verbalizes understanding and agrees with this plan. Disposition Clinical Impression: Anxiety, Acid reflux Disposition: HOME SELF-CARE Condition: Good Instructions: Gastroesophageal Reflux Disease (ED), Anxiety (ED) Additional Instructions: Follow-up with a primary care physician for further evaluation of your anxiety. Avoid spicy or greasy foods. Return here immediately for any new, worsening, or concerning symptoms. Referrals: None,Stated [Primary Care Provider] - 1-2 days Time of Disposition: 03:23
[2016-12-21 03:33] VITALS: BP 128/84; PULSE 62; RESP 16; TEMP 97.7
== END 2016-12-21 03:31 | disposition home or self-care (01) ==
LOC: EC 01:24
DX: K21.9 Gastro-esophageal reflux disease without esophagitis (principal); F41.9 Anxiety disorder, unspecified
CPT/HCPCS: 99284; 96372; J2060

== ENCOUNTER 2017-02-16 13:09 | Emergency (ER) | payer OTHER ==
[2017-02-16] MEDS ORDERED: SODIUM CHLORIDE 0.9% 1,000 ML IV ONE (14:04)
[2017-02-16] MEDS ORDERED: KETOROLAC 30 MG/ML 1 ML VIAL IVP STA (14:04)
[2017-02-16] MEDS ORDERED: ALPRAZolam 0.5 MG TAB PO STA (14:04)
--- NOTE | 2017-02-16 14:14 | ED ---
General Adult HPI - General Chief complaint: Allergic Reaction Stated complaint: chest pain Time Seen by Provider: 02/16/17 13:51 Source: patient Mode of arrival: ambulatory Limitations: no limitations - History of Present Illness Initial comments: patient is a 22-year-old female with a history of anxiety and depression who presents with a chief complaint of left-sided and sternal chest pain. The patient states this started yesterday. She states that she recently started taking Zoloft, and buspirone as she is trying to stop taking Xanax for anxiety. The patient cannot identify any inciting incidences that may have caused her chest pain. She denies any trauma, heavy lifting, bending, or twisting. Patient states that she does not identify any aggravating or alleviating factors. Timing for her has been constant. The patient states that she is somewhat short of breath. On initial evaluation, the patient appears anxious and uncomfortable. - Related Data Home Medications Medication Instructions Recorded Confirmed Omeprazole 40 mg PO DAILY 02/16/17 02/16/17 Sertraline [Zoloft] 50 mg PO HS 02/16/17 02/16/17 busPIRone HCL [busPIRone HCL] 5 mg PO BID 02/16/17 02/16/17 Previous Rx's Medication Instructions Recorded Ibuprofen [Motrin] 800 mg PO Q8H #20 tab 02/16/17 Allergies Allergy/AdvReac Type Severity Reaction Status Date / Time No Known Allergies Allergy Verified 02/16/17 14:07 Review of Systems ROS Statement: Those systems with pertinent positive or pertinent negative responses have been documented in the HPI. ROS Other: All systems not noted in ROS Statement are negative. Constitutional: Denies: fever Eyes: Denies: vision change ENT: Denies: ear pain, throat pain Respiratory: Denies: dyspnea Cardiovascular: Reports: chest pain Endocrine: Denies: fatigue Gastrointestinal: Denies: abdominal pain, nausea, vomiting Genitourinary: Denies: dysuria Musculoskeletal: Denies: back pain Skin: Denies: rash, lesions Neurological: Denies: headache Psychiatric: Reports: anxiety, depression Past Medical History Past Medical History: No Reported History History of Any Multi-Drug Resistant Organisms: None Reported Past Surgical History: No Surgical Hx Reported Past Psychological History: Anxiety, Depression Smoking Status: Never smoker Past Alcohol Use History: None Reported Past Drug Use History: None Reported General Exam Limitations: no limitations General appearance: alert, in no apparent distress Head exam: Present: atraumatic, normocephalic Eye exam: Present: PERRL ENT exam: Present: mucous membranes moist Respiratory exam: Present: normal lung sounds bilaterally, chest wall tenderness (patient has tenderness to palpation along the left costosternal border and laterally on her left chest wall. Evaluation of the skin does not show any bruising, erythema, or other lesions.) Cardiovascular Exam: Present: regular rate, normal rhythm GI/Abdominal exam: Present: soft. Absent: distended, tenderness Rectal exam: Present: deferred Extremities exam: Present: normal inspection Back exam: Present: normal inspection Neurological exam: Present: alert, oriented X3, CN II-XII intact Psychiatric exam: Present: anxious, flat affect Skin exam: Present: warm, dry, intact Course Vital Signs 02/16/17 02/16/17 13:14 16:02 Temperature 98.1 F Pulse Rate 94 68 Respiratory 20 16 Rate Blood Pressure 128/88 122/77 O2 Sat by Pulse 100 100 Oximetry Medical Decision Making - Medical Decision Making patient is a 22-year-old female presents with a chief complaint of left-sided chest pain, onset yesterday. Patient describes a sharp type pain, worse with palpation. They'll have an EKG performed, one set of cardiac enzymes. Patient is perk negative and therefore making PE very unlikely diagnosis. Patient will be given 1 L of IV fluids, Toradol for pain, and Xanax for anxiety. 4 PM Lab evaluation this patient is unremarkable. HCG is negative, urinalysis shows a contaminated sample, given that the patient is not symptomatic she will not be treated for urinary tract infection at this time. On reexamination, patient states that her chest pain has improved. At this time there is no likelihood of life-threatening etiologies. Patient was instructed to follow up with primary care or return to the emergency department if her symptoms worsen or change in anyway. She'll be prescribed Motrin for pain control. - Lab Data Result diagrams: 02/16/17 14:54 02/16/17 14:54 Lab Results 02/16/17 02/16/17 02/16/17 Range/Units 14:54 14:54 14:54 WBC 10.5 (3.8-10.6) k/uL RBC 4.57 (3.80-5.40) m/uL Hgb 11.1 L (11.4-16.0) gm/dL Hct 35.1 (34.0-46.0) % MCV 76.8 L (80.0-100.0) fL MCH 24.4 L (25.0-35.0) pg MCHC 31.7 (31.0-37.0) g/dL RDW 16.0 H (11.5-15.5) % Plt Count 416 (150-450) k/uL Neutrophils % 74 % Lymphocytes % 20 % Monocytes % 4 % Eosinophils % 1 % Basophils % 1 % Neutrophils # 7.8 H (1.3-7.7) k/uL Lymphocytes # 2.1 (1.0-4.8) k/uL Monocytes # 0.4 (0-1.0) k/uL Eosinophils # 0.1 (0-0.7) k/uL Basophils # 0.1 (0-0.2) k/uL Anisocytosis Slight Microcytosis Slight Sodium 140 (137-145) mmol/L Potassium 3.9 (3.5-5.1) mmol/L Chloride 107 (98-107) mmol/L Carbon Dioxide 17 L (22-30) mmol/L Anion Gap 16 mmol/L BUN 8 (7-17) mg/dL Creatinine 0.70 (0.52-1.04) mg/dL Est GFR (MDRD) Af Amer >60 (>60 ml/min/1.73 sqM) Est GFR (MDRD) Non-Af >60 (>60 ml/min/1.73 sqM) Glucose 92 (74-99) mg/dL Calcium 10.3 H (8.4-10.2) mg/dL Troponin I <0.012 (0.000-0.034) ng/mL HCG, Qual Not Detected Urine Color Urine Appearance (Clear) Urine pH (5.0-8.0) Ur Specific [place] (1.001-1.035) Urine Protein (Negative) Urine Glucose (UA) (Negative) Urine Ketones (Negative) Urine Blood (Negative) Urine Nitrite (Negative) Urine Bilirubin (Negative) Urine Urobilinogen (<2.0) mg/dL Ur Leukocyte Esterase (Negative) Urine RBC (0-5) /hpf Urine WBC (0-5) /hpf Ur Squamous Epith Cells (0-4) /hpf Amorphous Sediment (None) /hpf Urine Mucus (None) /hpf 02/16/17 Range/Units 14:54 WBC (3.8-10.6) k/uL RBC (3.80-5.40) m/uL Hgb (11.4-16.0) gm/dL Hct (34.0-46.0) % MCV (80.0-100.0) fL MCH (25.0-35.0) pg MCHC (31.0-37.0) g/dL RDW (11.5-15.5) % Plt Count (150-450) k/uL Neutrophils % % Lymphocytes % % Monocytes % % Eosinophils % % Basophils % % Neutrophils # (1.3-7.7) k/uL Lymphocytes # (1.0-4.8) k/uL Monocytes # (0-1.0) k/uL Eosinophils # (0-0.7) k/uL Basophils # (0-0.2) k/uL Anisocytosis Microcytosis Sodium (137-145) mmol/L Potassium (3.5-5.1) mmol/L Chloride (98-107) mmol/L Carbon Dioxide (22-30) mmol/L Anion Gap mmol/L BUN (7-17) mg/dL Creatinine (0.52-1.04) mg/dL Est GFR (MDRD) Af Amer (>60 ml/min/1.73 sqM) Est GFR (MDRD) Non-Af (>60 ml/min/1.73 sqM) Glucose (74-99) mg/dL Calcium (8.4-10.2) mg/dL Troponin I (0.000-0.034) ng/mL HCG, Qual Urine Color Yellow Urine Appearance Cloudy H (Clear) Urine pH 8.0 (5.0-8.0) Ur Specific [place] 1.009 (1.001-1.035) Urine Protein Negative (Negative) Urine Glucose (UA) Negative (Negative) Urine Ketones 1+ H (Negative) Urine Blood Negative (Negative) Urine Nitrite Negative (Negative) Urine Bilirubin Negative (Negative) Urine Urobilinogen <2.0 (<2.0) mg/dL Ur Leukocyte Esterase Large H (Negative) Urine RBC <1 (0-5) /hpf Urine WBC 19 H (0-5) /hpf Ur Squamous Epith Cells 22 H (0-4) /hpf Amorphous Sediment Rare H (None) /hpf Urine Mucus Rare H (None) /hpf Disposition Clinical Impression: Chest pain, Anxiety Disposition: HOME SELF-CARE Condition: Good Instructions: Chest Pain (ED) Prescriptions: Ibuprofen [Motrin] 800 mg PO Q8H #20 tab Referrals: Nely Rodriguez MD [Primary Care Provider] - 1-2 days
[2017-02-16 15:10] LABS: Anisocytosis Slight; Basophils # (A) 0.1 k/uL (0-0.2); Basophils % (A) 1 %; CH 24.7; CHCM 32.3; Eosinophils # (A) 0.1 k/uL (0-0.7); Eosinophils % (A) 1 %; HCT 35.1 % (34.0-46.0); HGB 11.1 gm/dL (11.4-16.0); Luc # (Auto) 0.11; Luc % (Auto) 1; Lymphocytes # (A) 2.1 k/uL (1.0-4.8); Lymphocytes % (A) 20 %; MCH 24.4 pg (25.0-35.0); MCHC 31.7 g/dL (31.0-37.0); MCV 76.8 fL (80.0-100.0); Mean Platelet Volume 7.3; Microcytosis Slight; Monocytes # (A) 0.4 k/uL (0-1.0); Monocytes % (A) 4 %; Neutrophils # (A) 7.8 k/uL (1.3-7.7); Neutrophils % (A) 74 %; RBC 4.57 m/uL (3.80-5.40); WBC 10.5 k/uL (3.8-10.6); WBC (Perox) 11.17
[2017-02-16 15:13] LABS: Amorphous Sediment,Urine Rare /hpf; Appearance,Urine Cloudy (Clear); Bilirubin,Urine Negative (Negative); Glucose,Urine (UA) Negative (Negative); Ketones,Urine 1+ (Negative); Leukocyte Esterase,Urine Large (Negative); Mucus,Urine Rare /hpf; Nitrite,Urine Negative (Negative); Particle Count 9979; Protein,Urine Negative (Negative); RBC,Urine <1 /hpf (0-5); Specific Gravity,Urine 1.009 (1.001-1.035); Squamous Epithelial Cell,Urine 22 /hpf (0-4); UA Billing (MACRO vs. MICRO) MICRO; Urobilinogen,Urine <2.0 mg/dL (<2.0); WBC,Urine 19 /hpf (0-5)
[2017-02-16 15:14] LABS: HCG,Qualitative Serum Not Detected
[2017-02-16 15:16] LABS: Anion Gap 16 mmol/L; Blood Urea Nitrogen 8 mg/dL (7-17); Calcium 10.3 mg/dL (8.4-10.2); Carbon Dioxide 17 mmol/L (22-30); Chloride 107 mmol/L (98-107); Glucose 92 mg/dL (74-99); Non-African American GFR(MDRD) >60 (>60 ml/min/1.73 sqM); Potassium 3.9 mmol/L (3.5-5.1); Sodium 140 mmol/L (137-145)
--- NOTE | 2017-02-16 15:53 | XR ---
EXAMINATION TYPE: XR chest 2V DATE OF EXAM: 02/16/2017 COMPARISON: 12/22/16 HISTORY: Chest pain TECHNIQUE: Frontal and lateral views of the chest are obtained. FINDINGS: There is no focal air space opacity. No evidence for pneumothorax. No pleural effusion. The cardiac silhouette size is within normal limits. The osseous structures are grossly intact. IMPRESSION: 1. No acute cardiopulmonary process.
[2017-02-16 16:03] VITALS: BP 122/77; PULSE 68; RESP 16
[2017-02-16 16:23] VITALS: TEMP 98.3
== END 2017-02-16 16:23 | disposition home or self-care (01) ==
LOC: EC 13:09
DX: R07.2 Precordial pain (principal); F41.9 Anxiety disorder, unspecified; R06.02 Shortness of breath; F32.9 Major depressive disorder, single episode, unspecified; Z79.899 Other long term (current) drug therapy
CPT/HCPCS: 36415; 93005; 80048; 84484; 85025; 81001; 84703; 71020; 99284; 96374; 96361; J1885

== ENCOUNTER 2017-04-18 10:55 | Emergency (ER) | payer OTHER ==
--- NOTE | 2017-04-18 12:54 | ED ---
Head Injury HPI - General Chief complaint: Head Injury Stated complaint: HEAD INJURY Time Seen by Provider: 04/18/17 12:07 Source: patient, RN notes reviewed Mode of arrival: wheelchair Limitations: no limitations - History of Present Illness Initial comments: This is a 22-year-old female presents emergency Department chief complaint of head injury. Patient states that she was putting some laundry in the washer states that she ended up hitting her head on metal plate. She states that she was consciousness that she has headache and abrasion noted to her scalp. She is up-to-date on her tetanus. She denies any dizziness, neck pain, confusion. She just states that she just feels like there is pressure in her head. Patient denies any extremity weakness denies any nausea vomiting. Denies any chance . - Related Data Home Medications Medication Instructions Recorded Confirmed Omeprazole 40 mg PO DAILY 02/16/17 04/18/17 Sertraline [Zoloft] 50 mg PO HS 02/16/17 04/18/17 ALPRAZolam [Xanax] 0.5 mg PO BID PRN 04/18/17 04/18/17 busPIRone HCL 15 mg PO BID 04/18/17 04/18/17 Allergies/Adverse reactions: Allergies Allergy/AdvReac Type Severity Reaction Status Date / Time No Known Allergies Allergy Verified 04/18/17 12:48 Review of Systems ROS Statement: Those systems with pertinent positive or pertinent negative responses have been documented in the HPI. ROS Other: All systems not noted in ROS Statement are negative. Past Medical History Past Medical History: No Reported History History of Any Multi-Drug Resistant Organisms: None Reported Past Surgical History: No Surgical Hx Reported Past Psychological History: Anxiety, Depression Smoking Status: Never smoker Past Alcohol Use History: None Reported Past Drug Use History: None Reported General Exam Limitations: no limitations General appearance: alert, in no apparent distress Head exam: Present: atraumatic, normocephalic. Absent: normal inspection ( Small abrasion hematoma noted in the frontal aspect) Eye exam: Present: normal appearance, PERRL, EOMI. Absent: scleral icterus, conjunctival injection, periorbital swelling ENT exam: Present: normal exam, normal oropharynx, mucous membranes moist, TM's normal bilaterally, normal external ear exam Neck exam: Present: normal inspection, full ROM. Absent: tenderness, meningismus, lymphadenopathy Respiratory exam: Present: normal lung sounds bilaterally. Absent: respiratory distress, wheezes, rales, rhonchi, stridor Cardiovascular Exam: Present: regular rate, normal rhythm, normal heart sounds. Absent: systolic murmur, diastolic murmur, rubs, gallop, clicks Neurological exam: Present: alert, oriented X3, CN II-XII intact, reflexes normal, other (Finger to nose intact bilaterally without overshooting). Absent : motor sensory deficit Skin exam: Present: warm, dry, intact, normal color. Absent: rash Course Vital Signs 04/18/17 11:33 Temperature 98.4 F Pulse Rate 83 Respiratory 15 Rate Blood Pressure 113/69 O2 Sat by Pulse 100 Oximetry Medical Decision Making - Medical Decision Making 22-year-old female presented for MRSA from for head injury. Patient CT is unremarkable. Patient has small abrasion also. She is up-to-date on her tetanus. Patient we discharged return parameters were discussed. Patient has normal neuro exam. Disposition Clinical Impression: Head injury, Scalp abrasion Disposition: HOME SELF-CARE Condition: Stable Instructions: Concussion (ED) Additional Instructions: Please return to the Emergency Department if symptoms worsen or any other concerns. Referrals: Nely Rodriguez MD [Primary Care Provider] - 1-2 days Time of Disposition: 13:02
--- NOTE | 2017-04-18 12:59 | CT ---
EXAMINATION TYPE: CT brain wo con DATE OF EXAM: 04/18/2017 COMPARISON: Previous study dated 1996. HISTORY: Head Injury CT DLP: 1090.4 mGycm Automated exposure control for dose reduction was used. FINDINGS: Central structures are midline. There is no evidence of hydrocephalus. No acute focal lesion, mass ef fect or midline shift is seen. I do not see evidence of intracranial blood. Visualized portions of the paranasal sinuses and mastoids are clear. No depressed skull fracture is s een. IMPRESSION: NO ACUTE INTRACRANIAL ABNORMALITY.
[2017-04-18 13:13] VITALS: BP 112/65; PULSE 85; RESP 18; TEMP 97.6
== END 2017-04-18 13:13 | disposition home or self-care (01) ==
LOC: EC 10:55
DX: S00.01XA Abrasion of scalp, initial encounter (principal); F32.9 Major depressive disorder, single episode, unspecified; F41.9 Anxiety disorder, unspecified; Z79.899 Other long term (current) drug therapy; W22.8XXA Striking against or struck by other objects, initial encounter; Y93.01 Activity, walking, marching and hiking; Y92.89 Other specified places as the place of occurrence of the external cause
CPT/HCPCS: 70450; 99283

== ENCOUNTER 2024-09-03 06:42 | Inpatient (IN) | payer BC ==
--- NOTE | 2024-09-03 06:58 | ED ---
Abdominal Pain HPI - General Chief Complaint: Abdominal Pain Stated Complaint: abd pain Time Seen by Provider: 09/03/24 06:48 Source: patient, RN notes reviewed Mode of arrival: ambulatory Limitations: no limitations - History of Present Illness Initial Comments: This is a 29-year-old female who presents to the emergency department for abdominal pain. Patient reports right upper quadrant abdominal pain starting about 3 hours ago. She has nausea but no vomiting. States that she had cake last night. The last time she had pain this bad was when she needed her appendix out 2 years ago. Denies any history of problems with her gallbladder. Denies any diarrhea or constipation. MD Complaint: abdominal pain - Related Data Home Medications Medication Instructions Recorded Confirmed No Known Home Medications 09/03/24 09/03/24 Allergies Allergy/AdvReac Type Severity Reaction Status Date / Time No Known Allergies Allergy Verified 09/03/24 09:14 Review of Systems ROS Statement: Those systems with pertinent positive or pertinent negative responses have been documented in the HPI. ROS Other: All systems not noted in ROS Statement are negative. Past Medical History Past Medical History: No Reported History History of Any Multi-Drug Resistant Organisms: None Reported Past Surgical History: No Surgical Hx Reported Past Psychological History: Anxiety, Depression Smoking Status: Never smoker Past Alcohol Use History: None Reported Past Drug Use History: None Reported General Exam Limitations: no limitations General appearance: alert, in no apparent distress Head exam: Present: atraumatic, normocephalic, normal inspection Respiratory exam: Present: normal lung sounds bilaterally. Absent: respiratory distress, wheezes, rales, rhonchi, stridor Cardiovascular Exam: Present: regular rate, normal rhythm GI/Abdominal exam: Present: soft, tenderness (RUQ). Absent: distended Neurological exam: Present: alert, oriented X3, CN II-XII intact Psychiatric exam: Present: normal affect, normal mood Skin exam: Present: warm, dry, intact, normal color. Absent: rash Course Vital Signs 09/03/24 09/03/24 06:42 08:13 Temperature 98.9 F Pulse Rate 102 H 70 Respiratory 20 16 Rate Blood Pressure 152/107 122/88 O2 Sat by Pulse 96 97 Oximetry Medical Decision Making - Medical Decision Making This is a 29-year-old female who presents to the emergency department for abdominal pain. Was pt. sent in by a medical professional or institution? @ -No Did you speak to anyone other than the patient for history? @ -No Did you review nursing and triage notes? @ -Yes, and I agree, it is accurate with regards to the patient's symptoms. Were old charts reviewed? @ -No Differential Diagnosis? @ -Differential Abdominal Pain Women: Appendicitis, Cholecystitis, diverticulosis, ischemic bowel, pancreatitis, hepatitis, UTI, gastroenteritis, AAA, incarcerated hernia, bowel obstruction, constipation, inflammatory bowel, hepatitis, peptic ulcer disease, splenic infarction, perforated viscus, vulvitis, ovarian torsion, PID, kidney stone, placenta abruption, this is not meant to be an all-inclusive list EKG interpreted by me (3pts min.)? @ -Not obtained X-rays interpreted by me (1pt min.)? @ -Not obtained CT interpreted by me (1pt min.)? @ -Not obtained U/S interpreted by me (1pt. min.)? @ -Gallbladder ultrasound obtained. My interpretation identifies cholelithiasis. What testing was considered but not performed? (CT, X-rays, U/S, labs)? Why? @ -None What meds were considered but not given? Why? @ -None Did you discuss the management of the patient with other professionals? @ -Yes, Dr. Yadav, general surgery, who is agreeable to admission here given the normal LFTs and CBD. Dr. Velazco accepts the patient for admission to medicine. Did you reconcile home meds? @ -No Was smoking cessation discussed for >3mins.? @ -No Was critical care preformed (if so, how long)? @ -No Were there social determinants of health that impacted care today? How? (Homelessness, low income, unemployed, alcoholism, drug addiction, transport ation, low edu. Level, literacy, decrease access to med. care, [facility], rehab)? @ -No Was there de-escalation of care discussed even if they declined? (Discuss DNR or withdrawal of care, Hospice)? @ -No What co-morbidities impacted this encounter? (DM, HTN, Smoking, COPD, CAD, Cancer, CVA, Hep., AIDS, mental health diagnosis, sleep apnea, morbid obesity)? @ -None Was patient admitted / discharged? @ -Admitted. Lab work demonstrates mild leukocytosis with a white blood cell count of 11.89 and an elevated lipase of 1954. Amylase elevated at 163. Liver enzymes are within normal limits. Gallbladder ultrasound obtained revealing cholelithiasis without signs of acute cholecystitis. CBD is within normal limi ts. Pancreatitis is likely secondary to gallstones. Patient denies any alcohol use. There is no sign of biliary obstruction. Case discussed with general surgery, who is agreeable to admission at our facility given that LFTs and CBD are within normal limits. Patient admitted to medicine for gallstone pancreatitis with consult placed to general surgery. Patient kept NPO. Maintenance fluids initiated. Case discussed with ED attending, Dr. Blackman. Undiagnosed new problem with uncertain prognosis? @ -None Drug Therapy requiring intensive monitoring for toxicity (Heparin, Nitro, Insulin, Cardizem)? @ -None Were any procedures done? @ -None Diagnosis/symptom? @ -Gallstone pancreatitis Acute, or Chronic, or Acute on Chronic? @ -Acute Uncomplicated (without systemic symptoms) or Complicated (systemic symptoms)? @ -Complicated Side effects of treatment? @ -None Exacerbation, Progression, or Severe Exacerbation] @ -Not applicable Poses a threat to life or bodily function? @ -Yes, can lead to life-threatening infection - Lab Data Result diagrams: 09/03/24 07:01 09/03/24 07:01 Lab Results 09/03/24 09/03/24 09/03/24 Range/Units 07:01 07:01 07:01 WBC 11.89 H (4.50-10.00) 10*3/uL RBC 4.68 (4.10-5.20) 10*6/uL Hgb 11.7 L (12.0-15.0) g/dL Hct 36.3 L (37.2-46.3) % MCV 77.6 L (80.0-97.0) fL MCH 25.0 L (27.0-32.0) pg MCHC 32.2 (32.0-37.0) g/dL Plt Count 379 (140-440) 10*3/uL MPV 9.3 L (9.5-12.2) fL Immature Gran % (Auto) 0.3 % Neutrophils % 62.8 % Lymphocytes % 29.9 % Monocytes % 5.6 % Eosinophils % 1.0 % Basophils % 0.4 % Immature Gran # 0.03 (0.00-0.04) 10*3/uL Neutrophils # 7.48 (1.80-7.70) 10*3/uL Lymphocytes # 3.55 (0.90-5.00) 10*3/uL Monocytes # 0.66 (0.20-1.00) 10*3/uL Eosinophils # 0.12 (0.04-0.35) 10*3/uL Basophils # 0.05 (0.00-0.10) 10*3/uL Sodium 139 (137-145) mmol/L Potassium 4.1 (3.5-5.1) mmol/L Chloride 105 (98-107) mmol/L Carbon Dioxide 23 (22-30) mmol/L Anion Gap 11 mmol/L BUN 12 (7-17) mg/dL Creatinine 0.66 (0.52-1.04) mg/dL Est GFR (CKD-EPI)AfAm >90 (>60 ml/min/1.73 sqM) Est GFR (CKD-EPI)NonAf >90 (>60 ml/min/1.73 sqM) Glucose 102 H (74-99) mg/dL Plasma Lactic Acid [place] 0.7 (0.7-2.0) mmol/L Calcium 9.6 (8.4-10.2) mg/dL Total Bilirubin 0.5 (0.2-1.3) mg/dL AST 24 (14-36) U/L ALT 19 (4-34) U/L Alkaline Phosphatase 90 (38-126) U/L Total Protein 7.6 (6.3-8.2) g/dL Albumin 4.6 (3.5-5.0) g/dL Amylase (30-110) U/L Lipase 1954 H (23-300) U/L HCG, Qual Not Detected Urine Color Urine Appearance (Clear) Urine pH (5.0-8.0) Ur Specific [place] (1.001-1.035) Urine Protein (Negative) Urine Glucose (UA) (Negative) Urine Ketones (Negative) Urine Blood (Negative) Urine Nitrite (Negative) Urine Bilirubin (Negative) Urine Urobilinogen (<2.0) mg/dL Ur Leukocyte Esterase (Negative) Urine RBC (0-5) /hpf Urine WBC (0-5) /hpf Ur Squamous Epith Cells (0-4) /hpf Urine Mucus (None) /hpf 06/07/25 06/07/25 Range/Units 07:01 07:49 WBC (4.50-10.00) 10*3/uL RBC (4.10-5.20) 10*6/uL Hgb (12.0-15.0) g/dL Hct (37.2-46.3) % MCV (80.0-97.0) fL MCH (27.0-32.0) pg MCHC (32.0-37.0) g/dL Plt Count (140-440) 10*3/uL MPV (9.5-12.2) fL Immature Gran % (Auto) % Neutrophils % % Lymphocytes % % Monocytes % % Eosinophils % % Basophils % % Immature Gran # (0.00-0.04) 10*3/uL Neutrophils # (1.80-7.70) 10*3/uL Lymphocytes # (0.90-5.00) 10*3/uL Monocytes # (0.20-1.00) 10*3/uL Eosinophils # (0.04-0.35) 10*3/uL Basophils # (0.00-0.10) 10*3/uL Sodium (137-145) mmol/L Potassium (3.5-5.1) mmol/L Chloride (98-107) mmol/L Carbon Dioxide (22-30) mmol/L Anion Gap mmol/L BUN (7-17) mg/dL Creatinine (0.52-1.04) mg/dL Est GFR (CKD-EPI)AfAm (>60 ml/min/1.73 sqM) Est GFR (CKD-EPI)NonAf (>60 ml/min/1.73 sqM) Glucose (74-99) mg/dL Plasma Lactic Acid [place] (0.7-2.0) mmol/L Calcium (8.4-10.2) mg/dL Total Bilirubin (0.2-1.3) mg/dL AST (14-36) U/L ALT (4-34) U/L Alkaline Phosphatase (38-126) U/L Total Protein (6.3-8.2) g/dL Albumin (3.5-5.0) g/dL Amylase 163 H (30-110) U/L Lipase (23-300) U/L HCG, Qual Urine Color Colorless Urine Appearance Clear (Clear) Urine pH 6.5 (5.0-8.0) Ur Specific [place] 1.018 (1.001-1.035) Urine Protein Negative (Negative) Urine Glucose (UA) Negative (Negative) Urine Ketones Negative (Negative) Urine Blood Moderate H (Negative) Urine Nitrite Negative (Negative) Urine Bilirubin Negative (Negative) Urine Urobilinogen <2.0 (<2.0) mg/dL Ur Leukocyte Esterase Negative (Negative) Urine RBC 16 H (0-5) /hpf Urine WBC 1 (0-5) /hpf Ur Squamous Epith Cells 3 (0-4) /hpf Urine Mucus Rare H (None) /hpf - Radiology Data Radiology results: report reviewed, image reviewed Disposition Clinical Impression: Gallstone pancreatitis Disposition: ADMITTED IP TO THIS HOSP
[2024-09-03] MEDS: MORPHINE SULFATE 4 MG/ML SYRINGE IVP STA (07:05)
[2024-09-03] MEDS: ONDANSETRON 4 MG/2 ML VIAL IVP STA (07:07)
[2024-09-03] MEDS: KETOROLAC 15 MG/ML 1 ML VIAL IVP STA (07:08)
[2024-09-03] MEDS: SODIUM CHLORIDE 0.9% 1,000 ML IV ONE (07:09)
[2024-09-03 07:18] LABS: Basophils # (A) 0.05 10*3/uL (0.00-0.10); Basophils % (A) 0.4 %; Eosinophils # (A) 0.12 10*3/uL (0.04-0.35); HCT 36.3 % (37.2-46.3); HGB 11.7 g/dL (12.0-15.0); Lymphocytes # (A) 3.55 10*3/uL (0.90-5.00); Lymphocytes % (A) 29.9 %; MCHC 32.2 g/dL (32.0-37.0); MCV 77.6 fL (80.0-97.0); Mean Platelet Volume 9.3 fL (9.5-12.2); Monocytes # (A) 0.66 10*3/uL (0.20-1.00); Monocytes % (A) 5.6 %; Neutrophils # (A) 7.48 10*3/uL (1.80-7.70); Neutrophils % (A) 62.8 %; Platelet Count 379 10*3/uL (140-440); RBC 4.68 10*6/uL (4.10-5.20); WBC 11.89 10*3/uL (4.50-10.00)
[2024-09-03 07:25] LABS: HCG,Qualitative Serum Not Detected
[2024-09-03 07:43] LABS: ALT 19 U/L (4-34); AST 24 U/L (14-36); African American GFR (CKD) >90 (>60 ml/min/1.73 sqM); Albumin 4.6 g/dL (3.5-5.0); Alkaline Phosphatase 90 U/L (38-126); Anion Gap 11 mmol/L; Blood Urea Nitrogen 12 mg/dL (7-17); Calcium 9.6 mg/dL (8.4-10.2); Carbon Dioxide 23 mmol/L (22-30); Chloride 105 mmol/L (98-107); Glucose 102 mg/dL (74-99); Non-African American GFR(CKD) >90 (>60 ml/min/1.73 sqM); Potassium 4.1 mmol/L (3.5-5.1); Sodium 139 mmol/L (137-145); Total Bilirubin 0.5 mg/dL (0.2-1.3); Total Protein 7.6 g/dL (6.3-8.2)
[2024-09-03 07:51] LABS: Lipase 1954 U/L (23-300)
[2024-09-03 08:07] LABS: Appearance,Urine Clear (Clear); Bilirubin,Urine Negative (Negative); Blood,Urine Moderate (Negative); Color,Urine Colorless; Glucose,Urine (UA) Negative (Negative); Ketones,Urine Negative (Negative); Leukocyte Esterase,Urine Negative (Negative); Mucus,Urine Rare /hpf; Nitrite,Urine Negative (Negative); PH, Urine 6.5 (5.0-8.0); Protein,Urine Negative (Negative); RBC,Urine 16 /hpf (0-5); Specific Gravity,Urine 1.018 (1.001-1.035); Squamous Epithelial Cell,Urine 3 /hpf (0-4); Urobilinogen,Urine <2.0 mg/dL (<2.0); WBC,Urine 1 /hpf (0-5)
--- NOTE | 2024-09-03 08:17 | US ---
EXAMINATION TYPE: US gallbladder DATE OF EXAM: 09/03/2024 COMPARISON: NONE CLINICAL INDICATION: Female, 29 years old with history of RUQ pain; TECHNIQUE: Grayscale and color Doppler imaging of the right upper quadrant was performed. FINDINGS: EXAM MEASUREMENTS: Liver Length: 19.9 cm Gallbladder Wall: 0.2 cm CBD: 0.7 cm Right Kidney: 11.4 x 6.0 x 5.1 cm Pancreas: portions seen appear wnl Liver: difficult to penetrate and enlarged Gallbladder: sludge, fundal stone seen, wall wnl Evidence for sonographic German's sign: no CBD: wnl Right Kidney: a few echogenic foci seen inferiorly within unknown etiology IMPRESSION: 1. Cholelithiasis. 2. Hepatomegaly. 3. There may be nonobstructing renal stones within the right kidney [facility], , 09/03/2024 8:15 AM
[2024-09-03] MEDS ORDERED: NALOXONE 0.4 MG/ML 1 ML VIAL IV PRN (08:38)
[2024-09-03] MEDS ORDERED: HYDROmorphone 1 MG/ML 1 ML SYRINGE IVP PRN (08:38)
[2024-09-03] MEDS ORDERED: ACETAMINOPHEN TAB 325 MG TAB PO PRN (08:38)
[2024-09-03] MEDS: PANTOPRAZOLE 40 MG/10 ML VIAL IV SCH (08:50)
[2024-09-03] MEDS: LACTATED RINGERS 1,000 ML IV ONE (08:51)
[2024-09-03] MEDS: LACTATED RINGERS 1,000 ML IV SCH (09:40)
[2024-09-03] MEDS: HYDROcodone/APAP 5-325MG 1 EACH TAB PO PRN (11:18)
--- NOTE | 2024-09-03 12:29 | P.HPIM ---
History of Present Illness H&P Date: 09/03/24 History of Presenting Illness: Patient is a very pleasant 29-year-old female with past medical history of appendectomy, anxiety, and depression. She presented to the emergency department with a chief complaint of sudden onset abdominal pain. Patient reports while at work doing morning rounds she developed sudden onset pain in her right upper quadrant and epigastric region accompanied by nausea. She denies any episodes of vomiting, fevers, chills, diaphoresis, chest pain, palpitations, or shortness of breath. Patient denies previous pain similar to this and denies having any difficulties with or changes in her urinary or bowel function. Upon arrival to our facility, patient underwent evaluation in the emergency department. Vital signs upon arrival show blood pressure 152/107, heart rate 102, respiratory rate 20, and temp 98.9 F with SpO2 of 96% on room air. Labs completed and reviewed. CBC showing leukocytosis with WBC count of 11.89 and microcytic anemia with hemoglobin of 11.7, hematocrit 36.6, MCV 77.6, and MCH of 25.0. BMP was unremarkable. Blood glucose 102. Calcium 9.6. Liver profile unremarkable. Amylase elevated at 163 and lipase was elevated at 1954. Serum hCG negative for . Urinalysis positive for blood and 16 RBCs negative for infection. Gallbladder ultrasound completed showing gallbladder sludge with fundal stone present, cholelithiasis with hepatomegaly and concerns of possible nonobstructing renal stones within the right kidney. Patient was admitted under services with consultation to general surgery. Review of systems: Pertinent positives and negatives as discussed in HPI, a complete review of systems was performed and all other systems are negative. Physical exam: Vital signs reviewed and stable. General: Nontoxic, no distress and appears stated age. Derm: Skin warm and dry, normal coloration for ethnicity. Head: Atraumatic, normocephalic and symmetric. Eyes: EOM's intact, no lid lag, and anicteric sclera Mouth: no lip lesions, mucus membranes moist Cardiovascular: regular rate and rhythm with normal S1S2, no murmur, positive posterior tibial pulses bilaterally, and cap refill < 2 seconds. Lungs: Respirations even, regular, and unlabored on room air. Lungs CTA bilaterally, no rhonchi, no rales, no wheezing, and no accessory muscle usage. Abdominal: soft, bowel sounds x 4, tenderness upon palpation right upper and epigastric region. No guarding, no appreciable organomegaly Ext: ROM intact. No gross muscle atrophy, no edema, no contractures Neuro: Speech clear, face symmetrical and CN II-XII grossly intact with no noted focal neuro deficits Psych: Alert and oriented to person, place, time, and situation. Appropriate and pleasant affect. Assessment and Plan of Care: Gallstone pancreatitis Leukocytosis Microcytic anemia -General Surgery consulted, appreciate recommendations. -Continue with aggressive IV fluid hydration with lactated Ringer's at 130 cc/h. -Zofran 4 mg IVP every 8 hours as needed for nausea or vomiting. -GI prophylaxis with Protonix. -N.p.o. status at this time, pending improvement will advance to clear liquids tomorrow. -Symptomatic care and pain management with Tylenol 650 mg p.o. every 6 hours as needed for mild pain, [place] 5/325 mg tablets every 4 hours as needed for moderate pain, and Dilaudid 1 mg IVP every 3 hours as needed for severe pain. Will hold off on antibiotics as prophylactic antibiotics are not recommended in management of gallstone pancreatitis unless patient develops signs of infection. -Continued close monitoring of liver function and CBC with repeat a.m. labs. Data and imaging reviewed: As stated above in HPI The patient is admitted with an anticipated greater than 2 midnight stay for evaluation of gallstone pancreatitis CODE STATUS: Full code DVT prophylaxis: Lovenox Discussed with: Patient, patient's family at bedside, RN, and ED physician. Anticipated discharge date: Pending clinical course Anticipated discharge place: Home Patient was seen independently by Nurse Practitioner. This document was prepared using [employer] dictation software. Please allow for errors in resource management planner while rare they do occur. Dima Young NP rendered care for this patient independently, reviewed the findings and plan as documented in the note above and agree with plan. I did not physically speak with or examine the patient on this date. Past Medical History Past Medical History: No Reported History History of Any Multi-Drug Resistant Organisms: None Reported Past Surgical History: No Surgical Hx Reported Past Psychological History: Anxiety, Depression Smoking Status: Never smoker Past Alcohol Use History: None Reported Past Drug Use History: None Reported Medications and Allergies Home Medications Medication Instructions Recorded Confirmed Type No Known Home Medications 09/03/24 09/03/24 History Allergies Allergy/AdvReac Type Severity Reaction Status Date / Time No Known Allergies Allergy Verified 09/03/24 09:14 Physical Exam Vitals: Vital Signs Temp Pulse Resp BP Pulse Ox 09/03/24 08:13 70 16 122/88 97 09/03/24 06:42 98.9 F 102 H 20 152/107 96 Intake and Output 09/02/24 09/03/24 09/03/24 22:59 06:59 14:59 Other: Weight 97.069 kg Results CBC & Chem 7: 09/03/24 07:01 09/03/24 07:01 Labs: Abnormal Lab Results - Last 24 Hours (Table) 09/03/24 09/03/24 09/03/24 Range/Units 07:01 07:01 07:01 WBC 11.89 H (4.50-10.00) 10*3/uL Hgb 11.7 L (12.0-15.0) g/dL Hct 36.3 L (37.2-46.3) % MCV 77.6 L (80.0-97.0) fL MCH 25.0 L (27.0-32.0) pg MPV 9.3 L (9.5-12.2) fL Glucose 102 H (74-99) mg/dL Amylase 163 H (30-110) U/L Lipase 1954 H (23-300) U/L Urine Blood (Negative) Urine RBC (0-5) /hpf Urine Mucus (None) /hpf 09/03/24 Range/Units 07:49 WBC (4.50-10.00) 10*3/uL Hgb (12.0-15.0) g/dL Hct (37.2-46.3) % MCV (80.0-97.0) fL MCH (27.0-32.0) pg MPV (9.5-12.2) fL Glucose (74-99) mg/dL Amylase (30-110) U/L Lipase (23-300) U/L Urine Blood Moderate H (Negative) Urine RBC 16 H (0-5) /hpf Urine Mucus Rare H (None) /hpf
--- NOTE | 2024-09-03 14:17 | P.GSCN ---
History of Present Illness Consult date: 09/03/24 History of present illness: 29-year-old female presented to the emergency department secondary to sudden onset of abdominal pain. She states that the pain started while she was at work and worsened significantly while she was at her job. She describes the pain is mainly epigastric. She complained of nausea as well. On presentation, patient is noted to have significantly elevated lipase with concern for gallstones on gallbladder ultrasound. Review of Systems All systems: negative Past Medical History Past Medical History: No Reported History History of Any Multi-Drug Resistant Organisms: None Reported Past Surgical History: No Surgical Hx Reported Past Psychological History: Anxiety, Depression Smoking Status: Never smoker Past Alcohol Use History: None Reported Past Drug Use History: None Reported Medications and Allergies Home Medications Medication Instructions Recorded Confirmed Type No Known Home Medications 09/03/24 09/03/24 History Allergies Allergy/AdvReac Type Severity Reaction Status Date / Time No Known Allergies Allergy Verified 09/03/24 09:14 Surgical - Exam Osteopathic Statement: *. No significant issues noted on an osteopathic structural exam other than those noted in the History and Physical/Consult. Vital Signs Temp Pulse Resp BP Pulse Ox 98.9 F 102 H 20 152/107 96 09/03/24 06:42 09/03/24 06:42 09/03/24 06:42 09/03/24 06:42 09/03/24 06:42 - General no distress - Eyes normal ocular movement - Neck trachea midline - Respiratory normal respiratory effort - Abdomen Soft, mild tenderness to palpation in the epigastrium, nondistended, no rebound or guarding Results - Labs 09/03/24 07:01 09/03/24 07:01 Abnormal Lab Results - Last 24 Hours (Table) 09/03/24 09/03/24 09/03/24 Range/Units 07:01 07:01 07:01 WBC 11.89 H (4.50-10.00) 10*3/uL Hgb 11.7 L (12.0-15.0) g/dL Hct 36.3 L (37.2-46.3) % MCV 77.6 L (80.0-97.0) fL MCH 25.0 L (27.0-32.0) pg MPV 9.3 L (9.5-12.2) fL Glucose 102 H (74-99) mg/dL Amylase 163 H (30-110) U/L Lipase 1954 H (23-300) U/L Urine Blood (Negative) Urine RBC (0-5) /hpf Urine Mucus (None) /hpf 09/03/24 Range/Units 07:49 WBC (4.50-10.00) 10*3/uL Hgb (12.0-15.0) g/dL Hct (37.2-46.3) % MCV (80.0-97.0) fL MCH (27.0-32.0) pg MPV (9.5-12.2) fL Glucose (74-99) mg/dL Amylase (30-110) U/L Lipase (23-300) U/L Urine Blood Moderate H (Negative) Urine RBC 16 H (0-5) /hpf Urine Mucus Rare H (None) /hpf Diabetes panel 09/03/24 Range/Units 07:01 Sodium 139 (137-145) mmol/L Potassium 4.1 (3.5-5.1) mmol/L Chloride 105 (98-107) mmol/L Carbon Dioxide 23 (22-30) mmol/L BUN 12 (7-17) mg/dL Creatinine 0.66 (0.52-1.04) mg/dL Glucose 102 H (74-99) mg/dL Calcium 9.6 (8.4-10.2) mg/dL AST 24 (14-36) U/L ALT 19 (4-34) U/L Alkaline Phosphatase 90 (38-126) U/L Total Protein 7.6 (6.3-8.2) g/dL Albumin 4.6 (3.5-5.0) g/dL Calcium panel 09/03/24 Range/Units 07:01 Calcium 9.6 (8.4-10.2) mg/dL Albumin 4.6 (3.5-5.0) g/dL Pituitary panel 09/03/24 Range/Units 07:01 Sodium 139 (137-145) mmol/L Potassium 4.1 (3.5-5.1) mmol/L Chloride 105 (98-107) mmol/L Carbon Dioxide 23 (22-30) mmol/L BUN 12 (7-17) mg/dL Creatinine 0.66 (0.52-1.04) mg/dL Glucose 102 H (74-99) mg/dL Calcium 9.6 (8.4-10.2) mg/dL Adrenal panel 09/03/24 Range/Units 07:01 Sodium 139 (137-145) mmol/L Potassium 4.1 (3.5-5.1) mmol/L Chloride 105 (98-107) mmol/L Carbon Dioxide 23 (22-30) mmol/L BUN 12 (7-17) mg/dL Creatinine 0.66 (0.52-1.04) mg/dL Glucose 102 H (74-99) mg/dL Calcium 9.6 (8.4-10.2) mg/dL Total Bilirubin 0.5 (0.2-1.3) mg/dL AST 24 (14-36) U/L ALT 19 (4-34) U/L Alkaline Phosphatase 90 (38-126) U/L Total Protein 7.6 (6.3-8.2) g/dL Albumin 4.6 (3.5-5.0) g/dL Assessment and Plan Plan: 29-year-old female with likely gallstone pancreatitis. Patient started on IV fluid resuscitation and kept NPO. Currently, no elevation in bilirubin level and liver enzymes are within normal limits. Will treat pancreatitis and I did recommend to the patient inpatient cholecystectomy once pancreatitis has improved. Continue with medical recommendations.
[2024-09-03] MEDS: ONDANSETRON 4 MG/2 ML VIAL IVP PRN (19:41)
[2024-09-04 07:21] LABS: HCT 36.7 % (37.2-46.3); HGB 11.7 g/dL (12.0-15.0); MCH 25.1 pg (27.0-32.0); MCHC 31.9 g/dL (32.0-37.0); MCV 78.8 fL (80.0-97.0); Mean Platelet Volume 9.3 fL (9.5-12.2); Platelet Count 370 10*3/uL (140-440); RBC 4.66 10*6/uL (4.10-5.20); RDW 14.8 % (11.5-14.5); WBC 10.31 10*3/uL (4.50-10.00)
[2024-09-04 07:40] LABS: ALT 17 U/L (4-34); AST 22 U/L (14-36); African American GFR (CKD) >90 (>60 ml/min/1.73 sqM); Albumin 4.3 g/dL (3.5-5.0); Albumin/Globulin Ratio 1.5; Alkaline Phosphatase 76 U/L (38-126); Anion Gap 11 mmol/L; Blood Urea Nitrogen 7 mg/dL (7-17); Calcium 9.3 mg/dL (8.4-10.2); Carbon Dioxide 23 mmol/L (22-30); Chloride 104 mmol/L (98-107); Globulin 2.8 g/dL; Glucose 90 mg/dL (74-99); Non-African American GFR(CKD) >90 (>60 ml/min/1.73 sqM); Sodium 138 mmol/L (137-145); Total Bilirubin 0.7 mg/dL (0.2-1.3); Total Protein 7.1 g/dL (6.3-8.2)
[2024-09-04] MEDS: ENOXAPARIN 40 MG/0.4 ML SYRINGE SQ SCH (08:36)
--- NOTE | 2024-09-04 10:36 | P.PN ---
Progress Note - Text Progress Note Date: 09/04/24 Patient seen and examined at bedside today. She states abdominal pain is improving. Laboratory values reviewed with normal LFTs. Patient offered cholecystectomy secondary to gallstone pancreatitis. Plan for robotic cholecystectomy later today. Further recommendations after surgical procedure.
[2024-09-04] MEDS ORDERED: LIDOCAINE 1% (10MG/ML) FOR IV START INTRADERMA PRN (10:53)
[2024-09-04] MEDS: IV FLUID CONTINUATION 1,000 ML IV ONE ×2 (13:35→15:59)
[2024-09-04] MEDS: droPERidol 2.5 MG/ML VIAL IVP ONE (13:41)
[2024-09-04] MEDS: DEXAMETHASONE SOD PHOSPHATE 4 MG/ML 1 ML VIAL IV ONE (13:41)
[2024-09-04] MEDS: SCOPOLAMINE 1 MG/72 HR PATCH TRANSDERM ONE (13:41)
[2024-09-04] MEDS: MIDAZOLAM 2 MG/2 ML VIAL IV ONE (13:42)
[2024-09-04] MEDS: LACTATED RINGERS 1,000 ML IV SCH (13:47)
--- NOTE | 2024-09-04 14:03 | P.PN ---
Subjective Progress Note Date: 09/04/24 Hospital course: Patient is a very pleasant 29-year-old female with past medical history of appendectomy, anxiety, and depression. She presented to the emergency department with a chief complaint of sudden onset abdominal pain. Patient reports while at work doing morning rounds she developed sudden onset pain in her right upper quadrant and epigastric region accompanied by nausea. She denies any episodes of vomiting, fevers, chills, diaphoresis, chest pain, palpitations, or shortness of breath. Patient denies previous pain similar to this and denies having any difficulties with or changes in her urinary or bowel function. Upon arrival to our facility, patient underwent evaluation in the emergency department. Vital signs upon arrival show blood pressure 152/107, heart rate 102, respiratory rate 20, and temp 98.9 F with SpO2 of 96% on room air. Labs completed and reviewed. CBC showing leukocytosis with WBC count of 11.89 and microcytic anemia with hemoglobin of 11.7, hematocrit 36.6, MCV 77.6, and MCH of 25.0. BMP was unremarkable. Blood glucose 102. Calcium 9.6. Liver profile unremarkable. Amylase elevated at 163 and lipase was elevated at 1954. Serum hCG negative for . Urinalysis positive for blood and 16 RBCs negative for infection. Gallbladder ultrasound completed showing gallbladder sludge with fundal stone present, cholelithiasis with hepatomegaly and concerns of possible nonobstructing renal stones within the right kidney. Patient was admitted under services with consultation to general surgery. Physical exam: Patient seen and fully evaluated at bedside this morning. She continues to have right upper quadrant pain, but states is improving. She reports 1 episode of nausea this morning but denies any vomiting. Patient denies any new complaints or concerns at this time. She is visiting with family members at bedside. Vital signs reviewed and stable. General: Nontoxic, no distress and appears stated age. Derm: Skin warm and dry, normal coloration for ethnicity. Head: Atraumatic, normocephalic and symmetric. Eyes: EOM's intact, no lid lag, and anicteric sclera Mouth: no lip lesions, mucus membranes moist Cardiovascular: regular rate and rhythm with normal S1S2, no murmur, positive posterior tibial pulses bilaterally, and cap refill < 2 seconds. Lungs: Respirations even, regular, and unlabored on room air. Lungs CTA bilater ally, no rhonchi, no rales, no wheezing, and no accessory muscle usage. Abdominal: soft, bowel sounds x 4, tenderness upon palpation right upper. No guarding, no appreciable organomegaly Ext: ROM intact. No gross muscle atrophy, no edema, no contractures Neuro: Speech clear, face symmetrical and CN II-XII grossly intact with no noted focal neuro deficits Psych: Alert and oriented to person, place, time, and situation. Appropriate and pleasant affect. Assessment and Plan of Care: Gallstone pancreatitis Leukocytosis Microcytic anemia -General Surgery following, discussed plan of care in detail with Dr. Yadav who plans to take patient for robotic assisted laparoscopic cholecystectomy later today.. -Continue with aggressive IV fluid hydration with lactated Ringer's at 130 cc/h. -Zofran 4 mg IVP every 8 hours as needed for nausea or vomiting. -GI prophylaxis with Protonix. -N.p.o. -Symptomatic care and pain management with Tylenol 650 mg p.o. every 6 hours as needed for mild pain, [place] 5/325 mg tablets every 4 hours as needed for moderate pain, and Dilaudid 1 mg IVP every 3 hours as needed for severe pain. Will hold off on antibiotics as prophylactic antibiotics are not recommended in management of gallstone pancreatitis unless patient develops signs of infection. -Continued close monitoring of liver function and CBC with repeat a.m. labs. Data and imaging reviewed: Morning labs reviewed. CBC showing leukocytosis with WBC count of 10.31 and stable microcytic anemia with hemoglobin of 11.7. BMP unremarkable. Blood glucose 90. Magnesium 2.0. Liver profile unremarkable. -Vital signs reviewed. Blood pressure 115/80, heart rate 71, respiratory rate 17, temp 97.9 F, and SpO2 of 99% on room air. Patient has remained afebrile throughout hospitalization. CODE STATUS: Full code DVT prophylaxis: Lovenox Discussed with: Patient, patient's family at bedside, RN, and general surgeon. Anticipated discharge date: Pending clinical course Anticipated discharge place: Home Patient was seen independently by Nurse Practitioner. This document was prepared using [employer] dictation software. Please allow for errors in sdv pilot/navigator/dds operator while rare they do occur. Dima Young NP rendered care for this patient independently, reviewed the findings and plan as documented in the note above and agree with plan. I did not physically speak with or examine the patient on this date. Objective - Vital Signs Vital signs: Vital Signs Temp 97.9 F 09/04/24 07:15 Pulse 71 09/04/24 07:15 Resp 17 09/04/24 07:15 BP 115/80 09/04/24 07:15 Pulse Ox 99 09/04/24 07:15 FiO2 Intake & Output 09/03/24 09/04/24 09/04/24 18:59 06:59 18:59 Weight 97.069 kg Other: Voiding Method Toilet # Voids 2 - Labs CBC & Chem 7: 09/04/24 07:04 09/04/24 07:04 Labs: Abnormal Lab Results - Last 24 Hours (Table) 09/04/24 Range/Units 07:04 WBC 10.31 H (4.50-10.00) 10*3/uL Hgb 11.7 L (12.0-15.0) g/dL Hct 36.7 L (37.2-46.3) % MCV 78.8 L (80.0-97.0) fL MCH 25.1 L (27.0-32.0) pg MCHC 31.9 L (32.0-37.0) g/dL RDW 14.8 H (11.5-14.5) % MPV 9.3 L (9.5-12.2) fL
[2024-09-04] MEDS: SODIUM CHLORIDE 0.9% 100 ML with ceFAZolin 2,000 MG IV ONE (14:34)
[2024-09-04] MEDS ORDERED: NEOSTIGMINE 1 MG/ML 10 ML VIAL ONE (14:35)
[2024-09-04] MEDS ORDERED: HYDROmorphone (PF) 1 MG/ML ONE (14:35)
[2024-09-04] MEDS ORDERED: ROCURONIUM 10 MG/ML (5 ML VIAL) IV ONE (14:35)
[2024-09-04] MEDS ORDERED: LIDOCAINE 1% INJ 10MG/ML (20 ML MDV) ONE (14:35)
[2024-09-04] MEDS ORDERED: MIDAZOLAM 2 MG/2 ML VIAL ONE (14:35)
[2024-09-04] MEDS ORDERED: GLYCOPYRROLATE 0.2 MG/ML 2 ML VIAL ONE (14:35)
[2024-09-04] MEDS ORDERED: SUCCINYLCHOLINE CHLORIDE 200 MG/10 ML VIAL IV ONE (14:35)
[2024-09-04] MEDS ORDERED: PROPOFOL 10 MG/ML 20 ML VIAL IV ONE (14:35)
[2024-09-04] MEDS ORDERED: fentaNYL (PF) 50 MCG/ML 2 ML AMP ONE (14:35)
[2024-09-04] MEDS: LIDOCAINE 1%-EPI 1:100,000 20 ML VIAL SQ ONE (14:56)
--- NOTE | 2024-09-04 15:46 | P.OP ---
Date of Procedure: 09/04/24 Preoperative Diagnosis: Gallstone pancreatitis Postoperative Diagnosis: Gallstone pancreatitis Procedure(s) Performed: Robotic cholecystectomy Anesthesia: ELENI Surgeon: Patsy Yadav Pathology: other (Gallbladder and contents) Condition: stable Disposition: floor Indications for Procedure: 29-year-old female presented to the emergency department with complaint of abdominal pain. She is found to have gallstone pancreatitis. Patient's clinical symptoms from pancreatitis improved and plan is for robotic cholecystectomy. Risks, benefits and alternatives were provided to the patient. All questions answered prior to attending the operating suite. Operative Findings: Edematous gallbladder Description of Procedure: Patient was brought to the operating suite and placed in supine position on the operating table. Sedation was provided by anesthesia and the patient underwent endotracheal intubation. The patient was then prepped and draped in regular sterile fashion. An infraumbilical incision was made and dissection was carried to the fascia. The fascia was incised and an 8 mm trocar was placed. Pneumoperitoneum was achieved. The patient was then placed in appropriate position. 2 additional 8 mm trocars were placed in the right upper quadrant and 1 in the left upper quadrant. Robot was then docked. The gallbladder was then grasped and retracted superiorly and laterally. The gallbladder appeared edematous and somewhat distended. Dissection was carried along the infundibulum towards the cystic duct and the cystic duct was skeletonized. The cystic artery was similarly skeletonized and critical view was obtained. ICG was used to confirm anatomy. 2 clips were placed proximally on the cystic duct and 1 was placed distally and the cystic duct was ligated. Similarly, 2 clips were placed proximally on the cystic artery and 1 was placed distally and the cystic artery was ligated. Cautery was then used to dissect the gallbladder off of the gallbladder fossa. The gallbladder was then placed in an Endo Catch bag and rem mason from the abdomen from the infraumbilical incision site. Hemostasis was noted to be maintained. No bile leakage was noted. The infraumbilical fascial incision was closed under direct visualization using an 0 Vicryl suture and Zachary-Nikki device. Pneumoperitoneum was released. All ports removed from the abdomen. All port sites were closed with 4-0 Vicryl subcuticular suture. Sterile dressing was applied. The patient was taken to postanesthesia care unit in stable condition. Sponge and instrument count correct x 2.
[2024-09-04 16:47] LABS: Glucose,Whole Blood 169 mg/dL (70-110)
[2024-09-04] MEDS: KETOROLAC 15 MG/ML 1 ML VIAL IVP PRN (17:06)
[2024-09-04] MEDS: METOCLOPRAMIDE 5 MG/ML 2 ML VIAL IVP STA (17:21)
[2024-09-05] MEDS ORDERED: HYDROmorphone 0.5 MG/0.5 ML SYRINGE IVP PRN (07:00)
[2024-09-05] MEDS ORDERED: ONDANSETRON 4 MG/2 ML VIAL IVP PRN (07:00)
[2024-09-05 08:48] VITALS: RESP 16
[2024-09-05 10:10] LABS: HCT 37.4 % (37.2-46.3); HGB 11.4 g/dL (12.0-15.0); MCH 24.3 pg (27.0-32.0); MCV 79.7 FL (80.0-97.0); RBC 4.69 X 10*6/uL (4.10-5.20)
[2024-09-05 10:11] LABS: Basophils # (A) 0.02 X 10*3/uL (0.00-0.10); Basophils % (A) 0.2 %; Eosinophils # (A) 0 X 10*3/uL (0.04-0.35); Eosinophils % (A) 0 %; MCHC 30.5 g/dL (32.0-37.0); Mean Platelet Volume 10.5 FL (9.5-12.2); NRBC Per 100 WBC 0 X 10*3/uL (0.00-0.01); Neutrophils # (A) 10.81 X 10*3/uL (1.80-7.70); Neutrophils % (A) 81.3 %; Platelet Count 360 X 10*3/uL (140-440); RDW 14.9 % (11.5-14.5)
[2024-09-05 10:26] LABS: ALT 17 U/L (8-44); AST 23 U/L (13-35); Albumin 4.3 g/dL (3.8-4.9); Albumin/Globulin Ratio 1.59 Ratio (1.60-3.17); Alkaline Phosphatase 84 U/L (41-126); Blood Urea Nitrogen 7.2 mg/dL (9.0-27.0); Calcium 9.6 mg/dL (8.7-10.3); Carbon Dioxide 21.7 mmol/L (21.6-31.8); Chloride 101 mmol/L (96-109); Globulin 2.7 g/dL (1.6-3.3); Glucose 84 mg/dL (70-110); Potassium 4.4 mmol/L (3.5-5.5); Sodium 135 mmol/L (135-145); Total Bilirubin 0.6 mg/dL (0.3-1.2)
--- NOTE | 2024-09-05 13:14 | P.DS ---
Providers Date of admission: 09/03/24 08:38 Expected date of discharge: 09/05/24 Attending physician: Tani Velazco Consults: 09/03/24 08:38 Consult Physician Urgent Consulting Provider: Patsy Yadav Consult Reason/Comments: Gallstone pancreatitis Do you want consulting provider notified?: Yes Primary care physician: Stated None Hospital Course: Discharge diagnosis 1. Gallstone pancreatitis Hospital course This is a 29-year-old female who presented to the emergency room with complaints of abdominal pain. She was found to evidence of gallstone pancreatitis. Pat ient is status post robotic cholecystectomy. Patient tolerated surgery well. Her pain is controlled. She has been up and ambulating. She is tolerating diet. Afebrile. She is stable for discharge. Please refer to chart for any further details. Physician Damaged Freight Inspector note has been reviewed by physician. Signing provider agrees with the documented findings, assessment, and plan of care. Patient Condition at Discharge: Stable Plan - Discharge Summary Discharge Rx Participant: Yes New Discharge Prescriptions: New Ibuprofen [Motrin] 600 mg PO Q8HR PRN #30 tab PRN Reason: Pain HYDROcodone/APAP 5-325MG [[place] 5-325] 1 tab PO Q6HR PRN 3 Days #12 tab PRN Reason: Pain Discharge Medication List HYDROcodone/APAP 5-325MG [[place] 5-325] 1 tab PO Q6HR PRN 3 Days #12 tab 09/05/24 [Rx] Ibuprofen [Motrin] 600 mg PO Q8HR PRN #30 tab 09/05/24 [Rx] Follow up Appointment(s)/Referral(s): None,Stated [Primary Care Provider] - 1-2 days Patsy Yadav DO [Doctor of Osteopathic Medicine] - 1 Week Activity/Diet/Wound Care/Special Instructions: No driving while taking [place] No lifting over 10 pounds You may shower. No soaking or tub baths for 2 weeks Very light activity until you are reevaluated at your follow up appointment with your surgeon Continue Low Fat diet Discharge/Stand Alone Forms: Area PCPs Discharge Disposition: HOME SELF-CARE
[2024-09-05 14:18] VITALS: BP 107/70; PULSE 63; TEMP 98.1
--- NOTE | 2024-09-05 15:16 | P.PN ---
Subjective Progress Note Date: 09/05/24 Hospital course: Patient is a very pleasant 29-year-old female with past medical history of appendectomy, anxiety, and depression. She presented to the emergency department with a chief complaint of sudden onset abdominal pain. Patient reports while at work doing morning rounds she developed sudden onset pain in her right upper quadrant and epigastric region accompanied by nausea. She denies any episodes of vomiting, fevers, chills, diaphoresis, chest pain, palpitations, or shortness of breath. Patient denies previous pain similar to this and denies having any difficulties with or changes in her urinary or bowel function. Upon arrival to our facility, patient underwent evaluation in the emergency department. Vital signs upon arrival show blood pressure 152/107, heart rate 102, respiratory rate 20, and temp 98.9 F with SpO2 of 96% on room air. Labs completed and reviewed. CBC showing leukocytosis with WBC count of 11.89 and microcytic anemia with hemoglobin of 11.7, hematocrit 36.6, MCV 77.6, and MCH of 25.0. BMP was unremarkable. Blood glucose 102. Calcium 9.6. Liver profile unremarkable. Amylase elevated at 163 and lipase was elevated at 1954. Serum hCG negative for . Urinalysis positive for blood and 16 RBCs negative for infection. Gallbladder ultrasound completed showing gallbladder sludge with fundal stone present, cholelithiasis with hepatomegaly and concerns of possible nonobstructing renal stones within the right kidney. Patient was admitted under services with consultation to general surgery. Physical exam: Patient seen and fully evaluated at bedside this morning. She reported significant improvement of pain. She is tolerating clear liquid diet and denies any episodes of nausea or vomiting. Patient reports she has been getting up and ambulating to the bathroom without any difficulties. She reports urinating but denies bowel movement since surgery. Patient does admit to passing flatus. Vital signs reviewed and stable. General: Nontoxic, no distress and appears stated age. Derm: Skin warm and dry, normal coloration for ethnicity. Head: Atraumatic, normocephalic and symmetric. Eyes: EOM's intact, no lid lag, and anicteric sclera Mouth: no lip lesions, mucus membranes moist Cardiovascular: regular rate and rhythm with normal S1S2, no murmur, positive posterior tibial pulses bilaterally, and cap refill < 2 seconds. Lungs: Respirations even, regular, and unlabored on room air. Lungs CTA bilaterally, no rhonchi, no rales, no wheezing, and no accessory muscle usage. Abdominal: soft, bowel sounds x 4, No guarding, no appreciable organomegaly Ext: ROM intact. No gross muscle atrophy, no edema, no contractures Neuro: Speech clear, face symmetrical and CN II-XII grossly intact with no noted focal neuro deficits Psych: Alert and oriented to person, place, time, and situation. Appropriate and pleasant affect. Assessment and Plan of Care: Gallstone pancreatitis Leukocytosis Microcytic anemia -General Surgery following, reviewed documentation in chart. -Continue with aggressive IV fluid hydration with lactated Ringer's at 130 cc/h. -Zofran 4 mg IVP every 8 hours as needed for nausea or vomiting. -GI prophylaxis with Protonix. -Continue clear liquid diet, diet to be advanced per general surgery team. -Symptomatic care and pain management with Tylenol 650 mg p.o. every 6 hours as needed for mild pain, [place] 5/325 mg tablets every 4 hours as needed for moderate pain, and Dilaudid 1 mg IVP every 3 hours as needed for severe pain. Data and imaging reviewed: Morning labs reviewed. CBC showing leukocytosis with WBC count of 13.30 and normocytic anemia with hemoglobin stable at 11.4. BMP unremarkable with the exception of slightly elevated anion gap of 12.30. Blood glucose 84. Liver profile unremarkable. -Vital signs reviewed. Blood pressure 117/75, heart rate 70, respiratory rate 16, temp 98.2 F, and SpO2 of 99% on room air CODE STATUS: Full code DVT prophylaxis: Lovenox Discussed with: Patient, patient's family at bedside, and RN Anticipated discharge date: Pending clinical course Anticipated discharge place: Home Patient was seen independently by Nurse Practitioner. This document was prepared using [employer] dictation software. Please allow for errors in electromatic typist while rare they do occur. Dima Young NP rendered care for this patient independently, reviewed the findings and plan as documented in the note above and agree with plan. I did not physically speak with or examine the patient on this date. Objective - Vital Signs Vital signs: Vital Signs Temp 98.2 F 09/05/24 06:59 Pulse 70 09/05/24 06:59 Resp 16 09/05/24 06:59 BP 117/75 06/09/25 06:59 Pulse Ox 99 09/05/24 06:59 FiO2 Intake & Output 09/04/24 09/05/24 09/05/24 18:59 06:59 18:59 Intake Total 1000 Output Total 6 Balance 994 Intake: IV 1000 Output: Estimated Blood Loss 6 Other: Voiding Method Toilet # Voids 1 2 - Labs CBC & Chem 7: 09/05/24 06:59 09/05/24 06:59 Labs: Abnormal Lab Results - Last 24 Hours (Table) 09/04/24 Range/Units 16:44 POC Glucose (mg/dL) 169 H (70-110) mg/dL
--- NOTE | 2024-09-07 12:45 | CDI ---
Documentation Clarification Form Date: 09/07/2024 12:33:55 PM From: Sonali [place] Phone: Admit Date: 09/03/2024 08:38:00 AM Patient Name: Amira Cantu Visit Number: [id number] Discharge Date: 09/05/2024 03:42:00 PM ATTENTION: The Clinical Documentation Specialists (CDI) and [facility] Coding Staff appreciate your assistance in clarifying documentation. Please respond to the clarification below the line at the bottom and electronically sign. The CDI & [facility] Coding staff will review the response and follow-up if needed. Please note: Queries are made part of the Legal Health Record. If you have any questions, please contact the author of this message via ITS. Doctor/Provider: Tani Velazco The final diagnosis of the pathology report states Mildchronic cholecystitis with cholelithiasis. ON 09/02/2024 Coding guidelines do not allow coding professionals to code based on pathology results; therefore, clarification is requested. History/risk factors: Patient is a very pleasant 29-year-old female with past medical history of appendectomy,anxiety, anddepression. She presented to the emergency department with a chief complaint of sudden onsetabdominal pain Clinical Indicators: On 09/03/2024H/P -Vital signs upon arrival show [id number]/107, heart rate 102, respiratory rate 20, and temp 98. 9 F with SpO2 of 96% on room air. Labs completed and reviewed. CBC showingleukocytosiswith WBC count of 11. 89 andmicrocytic anemiawith hemoglobin of 11. 7, hematocrit 36. 6, MCV 77. 6, and MCH of 25. 0. BMPwasunremarkable. Blood glucose 102. Calcium 9. 6. Liver profile unremarkable. Amylase elevatedat 163 and lipase waselevatedat 1954. Serum hCGnegative forpregnancy. Urinalysis positive for blood and 16 RBCs negative forinfection. Gallbladderultrasoundcompleted showing gallbladder sludge with fundalstonepresent,cholelithiasiswithhepatomegalyand concerns ofpossiblenonobstructingrenal stoneswithin the right kidney On 09/04 pn -Gallstone pancreatitis Leukocytosis Microcytic anemia -General Surgery following, discussed plan of care in detail with Dr. Yadav who plans to take patient forrobotic assistedlaparoscopic cholecystectomy On 09/05 -Morning labs reviewed. CBC showingleukocytosiswith WBC count of 13. 30 andnormocytic anemiawith hemoglobin stable at 11. 4. BMPunremarkablewith the exception of slightlyelevatedanion gap of 12. 30. Blood glucose 84. Liver profile unremarkable. -Vital signs reviewed. [id number], heart rate 70, respiratory rate 16, temp 98. 2 F, and SpO2 of 99% on room air Treatment: Continue with aggressive IV fluid hydration with lactated Ringer's at 130 cc/h. -Zofran 4 mgIVPevery 8 hours as needed fornauseaorvomiting. -GI prophylaxis with Protonix. Will hold off on antibiotics asprophylacticantibiotics are not recommended in management ofgallstone pancreatitisunless patient develops signs ofinfection. Please clarify if you agree with the pathology report diagnosis of Mildchronic cholecystitis with cholelithiasis [x ] Yes [ ] No [ ] Other (please specify) [ ] Unable to determine (Template Last Revised: May 2020) MTDD
== END 2024-09-05 15:42 | disposition home or self-care (01) | DRG 417 ==
LOC: EC 06:42 → 6NMEDSUR 08:37 → OBSVTOIN 08:38 → 6NMEDSUR 12:11 → 4SSUR 20:20
PROVIDERS: ADMIT Student in an Organized Health Care Education/Training Program; ATTEND Student in an Organized Health Care Education/Training Program
PROC: 8E0W4CZ Robotic Assisted Procedure of Trunk Region, Percutaneous Endoscopic Approach (ICD-10-PCS; 2024-09-04)
PROC: 0FT44ZZ Resection of Gallbladder, Percutaneous Endoscopic Approach (ICD-10-PCS; principal; 2024-09-04 12:00)
DX: K80.10 Calculus of gallbladder with chronic cholecystitis without obstruction (principal); K85.10 Biliary acute pancreatitis without necrosis or infection; D50.9 Iron deficiency anemia, unspecified; R16.0 Hepatomegaly, not elsewhere classified; K82.8 Other specified diseases of gallbladder
CPT/HCPCS: 36415; 76705; 80053; 81001; 82150; 83605; 83690; 83735; 84703; 85025; 85027; 88304; 96361; 96374; 96375; 96376; 99285